=== PATIENT | female | born 1935 | race Caucasian/White ===

== ENCOUNTER 2017-04-04 18:05 | Inpatient (IN) | payer MEDICARE, BC ==
[2017-04-04] MEDS ORDERED: Morphine 4 MG/ML Carpuject ONE ×3 (18:22→21:39)
[2017-04-04] MEDS ORDERED: Ondansetron HCl/PF 4 MG/2 ML Vial ONE ×3 (18:22→21:35)
[2017-04-04] MEDS ORDERED: Lidocaine 1% w/Epinephrine 1:200K 30 ML VIAL ONE (18:27)
[2017-04-04] MEDS ORDERED: Proparacaine 0.5% Opth 15 ML BOT ONE (18:28)
[2017-04-04 18:38] LABS: #Eosinphils 0.3 thou/uL (0.0-0.7); #Lymphocytes 1.7 thou/uL (1.20-3.40); #Monocytes 0.9 thou/uL (0.11-0.59); #Neutrophils 7.9 thou/uL (1.40-6.50); %Basophils 0.2 % (0.0-1.0); %Eosinophils 2.9 % (0.0-10.0); %Lymphocytes 16.1 % (21.0-51.0); Hematocrit 41.9 % (36.0-47.0); Mean Platelet Volume 8.6 fL (7.4-10.4); Red Blood Cell (RBC) Count 4.27 mill/uL (4.20-5.40); White Blood Cell (WBC) Count 10.8 thou/uL (4.8-10.8)
[2017-04-04 18:45] LABS: Prothrombin Time 14.5 SEC (12.0-14.7)
[2017-04-04 18:46] LABS: PTT 30.4 SEC (22.9-36.1)
--- NOTE | 2017-04-04 18:59 | CT ---
HEAD CT NONCONTRAST 04/04/17 COMPARISON: 11/01/12 CLINICAL HISTORY: Fall with head injury. FINDINGS: There is marked abnormality of the right globe which is proptotic and diffusely hyperdense with adjac ent periorbital soft tissue hematoma. Soft tissue laceration of the right face is present. Fracture d eformity is seen within the right zygomatic arch. Fracture extension does involve the lateral wall of the right maxillary sinus and the lateral wall of the right orbit. There is a component of retrobulb ar hematoma. Associated intraconal and extraconal fat stranding present. There is no ventriculomegaly , mass effect, midline shift, or acute intracranial hemorrhage. IMPRESSION: Hemorrhagic posttraumatic right globe with proptosis and surrounding preseptal hematoma as well as re trobulbar hematoma. There is associated lateral wall right orbital fracture and additional injury to the right face as discussed above. Recommend urgent ophthalmology consultation for further evaluation . No acute intracranial hemorrhage or mass effect. POS: [facility]
--- NOTE | 2017-04-04 19:02 | CT ---
CT CERVICAL SPINE WITHOUT CONTRAST 04/04/17 HISTORY: Trauma. COMPARISON: None. FINDINGS: the mastoids are clear. There are erosions of the odontoid process with chronic synovitis. Severe de generative changes throughout the facets with large effusions. No acute fracture. There is anterolis thesis of 2 mm at C4 over C5 due to degenerative facet arthropathy. Multifocal neural foraminal narrowing is present. Lung apices are clear. IMPRESSION: 1. Extensive erosive changes of the atlantodental interval. 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 2. Moderate to severe degenerative changes throughout the cervical spine. 3. No acute fracture or malalignment. 4. Multilevel spondylosis and anterolisthesis. POS: [facility]
[2017-04-04 19:04] LABS: ALT (SGPT) 16 U/L (8-55); AST (SGOT) 16 U/L (5-34); Alkaline Phosphatase 78 U/L (40-150); Anion Gap 11 mmol/L (10-20); BUN (Urea Nitrogen) 24 mg/dL (9.8-20.1); Bilirubin, Total 0.3 mg/dL (0.2-1.2); Calc. Creatinine Clearance 0 mL/min (70-130); Calcium 9.9 mg/dL (7.8-10.44); Carbon Dioxide 28 mmol/L (23-31); Chloride 103 mmol/L (98-107); Estimated GFR-MDRD 57; Globulin 3.2 g/dL (2.4-3.5)
--- NOTE | 2017-04-04 19:06 | CT ---
CT OF FACE NONCONTRAST 04/04/17 INDICATION: Injury, fall. FINDINGS: As discussed on head CT, there is marked abnormality of the right globe which is proptotic and hyperd ense compatible with acute posttraumatic hemorrhage occupying majority of the right globe as well as the preseptal and retrobulbar soft tissues. Associated fracture deformity does involve the lateral wa ll of the right orbit, the junction of the superior and lateral grajeda of the right maxillary sinus an d the right zygomatic arch. Overlying soft tissue hematoma and subcutaneous air density present on th e right face. There is mild opacification of the right maxillary sinus. There are multiple absent den tition as well as lucencies about remaining dentition with odontogenic disease. IMPRESSION: Fractures involving the right orbit and right maxillary sinus and right zygoma with associated intrab ulbar hemorrhage, preseptal and retrobulbar hematoma and prominent right sided proptosis. Recommend u rgent ophthalmology consultation for further care. POS: [facility]
[2017-04-04] MEDS ORDERED: Bacitracin Zinc 1 Packet ONE (20:36)
[2017-04-04] MEDS ORDERED: hydrALAZINE 20 MG/ML VIAL SLOW IVP PRN (22:13)
[2017-04-04] MEDS ORDERED: Ondansetron ODT 4 MG TAB PO PRN (22:13)
[2017-04-04] MEDS ORDERED: traMADol HCl 50 MG TAB PO PRN ×2 (22:13)
[2017-04-04] MEDS ORDERED: Dextrose 50% Abboject 50 ML SYRINGE SLOW IVP PRN (22:13)
[2017-04-04] MEDS ORDERED: Dextrose 5% in Water 1,000 ML IV PRN (22:13)
[2017-04-04] MEDS ORDERED: Ondansetron HCl/PF 4 MG/2 ML Vial IVP PRN (22:13)
[2017-04-04] MEDS ORDERED: Acetaminophen/Codeine 30-300mg Tablet PO PRN ×2 (22:21)
[2017-04-04] MEDS: Sodium Chloride 0.9% 1,000 ML IV SCH (22:41)
[2017-04-04] MEDS: Acetaminophen 500 MG TAB PO SCH (23:10)
--- NOTE | 2017-04-05 00:03 | HP ---
DATE OF ADMISSION: 04/04/2017 REQUESTING PHYSICIAN: Bernardo Martinez M.D. ATTENDING PHYSICIAN: Jayme Hinton DO CONSULTATIONS: Ophthalmology, Dr. Khanna and Oral Maxillofacial Surgery, Dr. Gurjit Correa. HISTORY OF PRESENT ILLNESS: The patient is an 81-year-old woman who reportedly fell while walking down the steps approximately 1 hour prior to presenting to the emergency room. She reports falling and striking the right side of her face. She denies loss of consciousness. She was vivian t to the emergency room by ground EMS for evaluation of markedly decreased vision to her right eye a nd some neck pain. The patient underwent evaluation and examination was noted to have significant d ecreased vision in her right eye and some very noticeable proptosis at which time the ophthalmologis t was consulted, evaluated the patient, and performed a lateral canthotomy. The patient's vision di d not improve and may be even slightly worsened over time to the degree that by report she was able see fingers in front of her, then is currently unable to see out of her eye, at which time we were a sked to evaluate the patient for admission and to obtain consultation by [facility] for facial fractures. ALLERGIES: PENICILLIN. CURRENT MEDICATIONS: Lisinopril 10 mg daily, aspirin 81 mg daily, and multivitamin. PAST MEDICAL HISTORY: Hypertension. PAST SURGICAL HISTORY: Bilateral total knee replacements, cholecystectomy, and hysterectomy. SOCIAL HISTORY: Patient denies drugs, tobacco, or alcohol use. REVIEW OF SYSTEMS: A ten-point review of systems is negative unless otherwise stated. PHYSICAL EXAMINATION: VITAL SIGNS: Blood pressure 131/56, heart rate 70, respirations 18, temperature is 98.4, oxygen sat uration is 96% on 2 liters by nasal cannula. GENERAL: The patient is resting in the hospital bed. She appears comfortable. She is alert and or iented x3. [place] coma scale is 14. Patient at one point had her eyes closed, but immediately res ponded to verbal stimuli. HEENT: Head is normocephalic, atraumatic face. The right eye shows marked periorbital ecchymosis o f the upper lid. The eye itself is unable to be examined due to the swelling and bandaging the cont ralateral eye. PERRLA. Extraocular motion is intact, but the exam did cause some pain on the injur ed side. The nose had small amount of blood in the right naris, otherwise it was unremarkable. The ears are atraumatic without discharge. Oropharynx is clear. NECK: Nontender. Trachea is midline. No JVD. CHEST: Clear to auscultation with good inspiratory and expiratory effort. HEART: Regular rate and rhythm. ABDOMEN: Soft, flat, nontender. Pelvis is stable. EXTREMITIES: Show full active range of motion. Strength is 5/5 and capillary refill is less than 3 seconds. BACK: Nontender and atraumatic. LABORATORY FINDINGS: White blood cell count 10.8, hemoglobin 13.2, hematocrit 41.9, platelets 170. Sodium 138, potassium 4.3, chloride 103, CO2 of 28, BUN 24, creatinine 0.94, glucose 110. LFTs are unremarkable. PTT 30. PT 15, INR 1.1. RADIOGRAPHIC EXAMINATION: CT of the brain without contrast shows no acute intracranial hemorrhage o r mass effect. It does show hemorrhagic post-traumatic red globe with proptosis and surrounding pre septal hematoma as well as retrobulbar hematoma. There is an associated lateral wall fracture of th e right orbit and additional injury to the face right maxillary sinus fracture in the right zy gomatic arch. CT of the face without contrast shows again the retrobulbar hemorrhage and proptosis, fractures of the right maxillary sinus, right zygomatic arch, superior and lateral grajeda of the max illary sinus and lateral wall of the right orbit. CT of the C-spine without contrast shows no acute fracture, malalignment, or multiple degenerative changes. ASSESSMENT: 1. Status post ground level fall. 2. Right retrobulbar and preseptal hemorrhage and hematoma with significant acute vision loss. 3. Right maxillary sinus fracture. 4. Right orbital wall fracture. 5. Status post lateral canthotomy. 6. Acute pain secondary to trauma. 7. Hypertension. PLAN: We will be to admit the patient to the surgical floor for pain management. We will obtain co nsultation by [facility]. The patient will be reexamined by Dr. Khanna in the morning. She will have pa in control, pulmonary toilet, gastritis, mechanical DVT prophylaxis. The evaluation examination, ra diographic and laboratory findings will be discussed with Dr. Hinton after this dictation. This case was discussed with the family and I was able to answer the son's questions at this time.
[2017-04-05 00:30] VITALS: BMI 34.9
[2017-04-05 04:43] LABS: Anion Gap 14 mmol/L (10-20); BUN (Urea Nitrogen) 23 mg/dL (9.8-20.1); Calc. Creatinine Clearance 82 mL/min (70-130); Calcium 9.6 mg/dL (7.8-10.44); Carbon Dioxide 24 mmol/L (23-31); Chloride 107 mmol/L (98-107); Estimated GFR-MDRD 67
[2017-04-05 04:55] LABS: #Lymphocytes 1.4 thou/uL (1.20-3.40); #Monocytes 0.6 thou/uL (0.11-0.59); #Neutrophils 10.7 thou/uL (1.40-6.50); %Basophils 0.2 % (0.0-1.0); %Eosinophils 0.3 % (0.0-10.0); %Monocytes 4.7 % (0.0-10.0); Hematocrit 41.4 % (36.0-47.0); Mean Platelet Volume 9.9 fL (7.4-10.4); Red Blood Cell (RBC) Count 4.18 mill/uL (4.20-5.40); White Blood Cell (WBC) Count 12.8 thou/uL (4.8-10.8)
[2017-04-05] MEDS: Acetaminophen 500 MG TAB PO SCH ×3 (05:32→17:29)
[2017-04-05] MEDS: Famotidine 20 MG TAB PO SCH ×2 (08:42→21:19)
[2017-04-05] MEDS: Sodium Chloride 0.9% 1,000 ML IV SCH ×2 (08:42→17:29)
[2017-04-05] MEDS ORDERED: FLU VACC TS2017-18 (>65YR) 0.5 ML SYRINGE IM ONE (09:00)
--- NOTE | 2017-04-05 21:05 | CON ---
DATE OF CONSULTATION: 04/05/2017 HISTORY OF PRESENT ILLNESS: This is an 81-year-old female status post fall while at [facility] at appro ximately 4.00 p.m. on 04/04/2017. The patient presented to [facility] with significant right per iorbital edema decreasing vision, proptosis, a lateral cantholysis was performed by Dr. Khanna and a Kayleigh drain placed. A CT scan of the face revealed facial fractures for which Oral Surgery was consulted. PAST MEDICAL HISTORY: Hypertension. MEDICATIONS: Lisinopril, aspirin, and multivitamin. ALLERGIES: PENICILLIN. PAST SURGICAL HISTORY: Bilateral total knee replacements, cholecystectomy, and hysterectomy. SOCIAL HISTORY: Negative for tobacco, alcohol or recreational drugs. REVIEW OF SYSTEMS: The patient reports mild right facial pain. Otherwise, within normal limits. PHYSICAL EXAMINATION: VITAL SIGNS: Stable, afebrile. GENERAL: The patient lying in hospital bed in no acute distress. Awake, alert, and oriented x3. HEENT: Normocephalic. Significant right periorbital edema and ecchymosis, proptosis. A quarter in ch Kayleigh drain is present laterally. No appreciable oozing at the time of exam from the drain. C ircumferential subconjunctival heme, ocular exam deferred to Dr. Khanna's notes. No palpable bony or crepitus along the face. Ears atraumatic. Nasal bridge symmetrical. Nares patent bilater ally. No epistaxis, no septal hematoma. Range of motion of the mandible was within normal limits. TMJ bilaterally within normal limits. NECK: Supple. Trachea midline. CT of the face reveals a right zygomatic fracture with mild displa cement of the right zygomatic arch, not impinging on the right mandibular coronoid process approxima tely 2 mm medial displacement at the posterolateral aspect of the zygoma, the lateral maxillary sinu s wall. No significant stab appreciated at the inferior orbital rim. A linear, mildly displaced fr acture of the right orbital floor and the posterolateral aspect was present, no herniation of soft t issues to the fracture. ASSESSMENT: An 81-year-old female status post fall with right zygomatic and orbital fractures. PLAN: No operative intervention is indicated for the facial fractures. Recommend sinus precautions discussed in detail with the patient including no vigorous nose blowing, cough, sneeze with mouth o pen, no stooping, bending or heavy lifting for 3 weeks, ocular recommendations per Dr. Khanna, appr eciate assistance with the patient's injuries. She can follow up in the oral surgery clinic on an a s needed basis, call [phone] for appointment.
--- NOTE | 2017-04-05 21:50 | PRG ---
DATE OF SERVICE: 04/05/2017 SUBJECTIVE: The patient is hospital day #2 status post fall resulting in significant right eye retr obulbar hemorrhage and facial fractures. The patient underwent lateral canthotomy by Dr. Clemencia romo in the emergency department and this morning is awaiting his reevaluation and planned Penros e drain removal. The patient will also undergo evaluation by an oral maxillofacial surgeon allie olson. Initial discussion is that these are most likely nonoperative type fractures. This morning, the patient states that her pain is controlled and we will allow her a diet. PHYSICAL EXAMINATION: VITAL SIGNS: Temperature is 97.5, heart rate 57, blood pressure 127/75, respirations 16, oxygen sat uration is 96% on room air. GENERAL: The patient is resting comfortably in bed. She is alert and oriented x3. She is conversa nt and appropriate. HEENT: Her dressings on her right side of her face are clean, dry, and intact. LUNGS: Her chest is clear to auscultation bilaterally with good inspiratory and expiratory effort. HEART: Regular rate and rhythm. ABDOMEN: Soft, flat, and nontender. EXTREMITIES: Neurovascularly intact x4. LABORATORY FINDINGS: White blood cell count 12.8, hemoglobin 13.0, hematocrit 41.4, platelets 116. Sodium 140, potassium 4.6, chloride 107, CO2 of 24, BUN 23, creatinine 0.82, glucose 133. ASSESSMENT AND PLAN: 1. Status post ground level fall. 2. Right retrobulbar hemorrhage, status post lateral canthotomy. 3. Multiple facial fractures. The plan will be to continue pain management, pulmonary toilet, gastritis, mechanical deep venous th rombosis prophylaxis. We will also ask rehabilitation to evaluate her for placement. The evaluatio n was done on the surgical floor with Dr. Hinton.
[2017-04-06] MEDS: Acetaminophen 500 MG TAB PO SCH ×4 (00:35→18:23)
[2017-04-06] MEDS: Sodium Chloride 0.9% 1,000 ML IV SCH ×2 (05:20→16:22)
[2017-04-06] MEDS: Famotidine 20 MG TAB PO SCH (08:29)
[2017-04-06] MEDS ORDERED: Aspirin 81 mg Enteric Coated Tablet PO SCH (09:00)
[2017-04-06] MEDS ORDERED: Lisinopril 10 MG TAB PO SCH (09:00)
[2017-04-06 16:48] VITALS: BP 130/74
[2017-04-06 20:47] VITALS: TEMP 98.6
--- NOTE | 2017-04-07 11:50 | DIS ---
DATE OF ADMISSION: 04/04/2017 DATE OF DISCHARGE: 04/06/2017 ADMITTING DIAGNOSES: 1. Status post ground-level fall. 2. Right retrobulbar and preseptal hemorrhage and hematoma with significant acute vision loss. 3. Right maxillary sinus fracture. 4. Right orbital wall fracture. 5. Status post lateral canthotomy. 6. Acute pain secondary to trauma. 7. Hypertension. CONSULTATIONS: Ophthalmology, Dr. Khanna; Oral Maxillofacial Surgery, Dr. Rodriguez. PROCEDURES: Right lateral canthotomy. SUMMARY: The patient is an 81-year-old woman who was reportedly walking when she tripped and fell and struck the right side of her face. She was brought to the Emergency Department, evalua garcía and examined and found to have the above injuries. The patient was noted to have significant pr optosis of the right eye and decreasing vision at which time Dr. Khanna was consulted and evaluated the patient in the emergency department and performed a lateral canthotomy in the emergency departm ent and placed a drain and the following day, he would remove this drain. The patient's vision had improved slightly at time of discharge. She was also evaluated by [facility] who recommended nonoperative management of her facial fractures. The patient will be discharged to inpatient rehab with instruc tions to follow up with Dr. Khanna within the next 2-3 days. She may follow up with the [facility] in 7-10 days and may return to the Trauma clinic as needed.
== END 2017-04-06 21:11 | DRG 115 ==
LOC: ERS 18:05 → SURG A 21:00
PROVIDERS: ADMIT Surgery; ATTEND Surgery
PROC: 08N0XZZ Release Right Eye, External Approach (ICD-10-PCS; principal; 2017-04-04)
PROC: 089 Eye, Drainage (ICD-10-PCS; 2017-04-04)
PROC: 08P Eye, Removal (ICD-10-PCS; 2017-04-05)
DX: H57.8 Other specified disorders of eye and adnexa (principal); S02.40CA Maxillary fracture, right side, initial encounter for closed fracture; I10 Essential (primary) hypertension; S02.81XA Fracture of other specified skull and facial bones, right side, initial encounter for closed fracture; S02.40EA Zygomatic fracture, right side, initial encounter for closed fracture; Z88.0 Allergy status to penicillin; Z96.653 Presence of artificial knee joint, bilateral; Z90.49 Acquired absence of other specified parts of digestive tract; Z90.710 Acquired absence of both cervix and uterus; H54.61 Unqualified visual loss, right eye, normal vision left eye; S05.11XA Contusion of eyeball and orbital tissues, right eye, initial encounter; H05.231 Hemorrhage of right orbit
CPT/HCPCS: 36415; 70450; 70486; 72125; 80048; 80053; 85025; 85610; 85730; 90471; 90682; 96361; 96374; 96375; 96376; G0008; G0390; G8978-GP-CJ; G8979-GP-CI; G8987-GO-CJ; G8988-GO-CI; J2270; J2405; J2930; J7050; Q2036

== ENCOUNTER 2019-03-21 18:24 | Inpatient (IN) | payer MEDICARE, OTHER ==
--- NOTE | 2019-03-21 19:04 | CT ---
CT HEAD WITHOUT IV CONTRAST COMPARISON: 11/19/2017 HISTORY: Patient fell from a standing position and hit head. Injury after trauma. TECHNIQUE: Axial CT imaging at 5 mm intervals from vertex through skull base without contrast FINDINGS: There is no evidence of an acute infarction, hemorrhage, mass effect, or midline shift. The ventricul ar system is normal in size, shape, and position. Visualized paranasal sinuses and mastoid air cells are clear. Again noted is deformity of the right g lobe with associated increased density stable from prior study with associated small calcifications now present. Findings are likely related to remote history of trauma. Osseous structures appear intact.No calvarial fracture is seen. IMPRESSION: 1. No acute intracranial abnormality demonstrated. 2. Remote traumatic injury right globe.
[2019-03-21] MEDS ORDERED: Adacel (T-DAP) 0.5 ML SYRINGE ONE (19:05)
--- NOTE | 2019-03-21 19:11 | CT ---
EXAM: CT cervical spine PROVIDED CLINICAL HISTORY: Injury after trauma. Patient fell from a standing position and reports pain in back. TECHNIQUE: Contiguous axial CT images are obtained through the cervical spine from the skull base to the T2-3 le luke. Sagittal and coronal reformatted images are provided. COMPARISON: 04/04/2017 FINDINGS: Multilevel degenerative changes are seen throughout the cervical spine with extensive facet hypertrop hic changes at multiple levels and prominent osteophyte formation anteriorly. Again noted is slight anterolisthesis of C4 on C5 and C5 on C6 with trace anterolisthesis of C6 on C7 stable from prior cherie dy and likely related to the prominent facet hypertrophic changes. The vertebral body heights are within normal limits, and no fracture is seen. There is fusion of the T1, T2, and T3 vertebral bodies . There is prominent pannus formation involving the articulation of the odontoid with the anterior arch of C1 which was also seen on prior exam. This can be seen with inflammatory arthropathy as noted on prior exam. Multilevel moderate and severe degrees of neural foraminal narrowing are again seen. No prevertebral soft tissue swelling apparent. Visualized lung apices appear clear. Visualized thyroid gland demonstrates a grossly normal nonenhanced CT appearance. There is severe hypertrophic type changes involving the sternoclavicular joints bilaterally incomplet megan imaged or evaluated. IMPRESSION: 1. No fracture is seen involving the cervical spine. 2. Severe multilevel degenerative changes throughout the cervical spine with extensive erosive change s at the atlantodental interval which is stable from prior exam. 3. Multilevel anterolisthesis as described above related to prominent facet hypertrophic changes. 4. Additional findings as described above.
[2019-03-21] MEDS ORDERED: Morphine 4 MG/ML VIAL ONE (19:19)
[2019-03-21] MEDS ORDERED: Ondansetron PF 4 MG/2 ML Vial ONE (19:20)
[2019-03-21 19:49] LABS: #Eosinphils 0.1 thou/uL (0.0-0.7); #Lymphocytes 1.8 thou/uL (1.20-3.40); #Monocytes 0.8 thou/uL (0.11-0.59); #Neutrophils 12.8 thou/uL (1.40-6.50); %Basophils 0.1 % (0.0-1.0); %Eosinophils 0.5 % (0.0-10.0); %Lymphocytes 11.6 % (21.0-51.0); %Monocytes 5.2 % (0.0-10.0); %Neutrophils 82.7 % (42.0-75.0); Hemoglobin 12.6 g/dL (12.0-16.0); Mean Corpuscular HGB CONC 32.4 g/dL (32.0-36.0); Mean Corpuscular Hemoglobin 31.3 pg (27.0-31.0); Mean Corpuscular Volume 96.6 fL (78.0-98.0); Mean Platelet Volume 9.5 fL (7.4-10.4); Platelet Count 170 thou/uL (130-400); RBC Distribution Width 12.7 % (11.5-14.5); Red Blood Cell (RBC) Count 4.03 mill/uL (4.20-5.40); White Blood Cell (WBC) Count 15.5 thou/uL (4.8-10.8)
[2019-03-21 19:55] LABS: INR-International Normal Ratio 1.1; PTT 27.6 SEC (22.9-36.1); Prothrombin Time 14.3 SEC (12.0-14.7)
[2019-03-21 20:10] LABS: ALT (SGPT) 17 U/L (8-55); AST (SGOT) 22 U/L (5-34); Albumin 3.6 g/dL (3.4-4.8); Alkaline Phosphatase 79 U/L (40-110); Anion Gap 11 mmol/L (10-20); BUN (Urea Nitrogen) 28 mg/dL (9.8-20.1); Bilirubin, Total 0.3 mg/dL (0.2-1.2); Calc. Creatinine Clearance 0 mL/min (70-130); Calcium 9.4 mg/dL (7.8-10.44); Carbon Dioxide 25 mmol/L (23-31); Chloride 106 mmol/L (98-107); Estimated GFR-MDRD 56; Glucose 130 mg/dL (83-110); Potassium 3.9 mmol/L (3.5-5.1); Protein, Total 6.6 g/dL (6.0-8.3); Sodium 138 mmol/L (136-145)
[2019-03-21] MEDS ORDERED: Dextrose 5% in Water 1,000 ML IV PRN (20:21)
[2019-03-21] MEDS ORDERED: Dextrose 50% Abboject 50 ML SYRINGE SLOW IVP PRN (20:21)
[2019-03-21] MEDS ORDERED: Ondansetron PF 4 MG/2 ML Vial IVP PRN (20:21)
[2019-03-21] MEDS ORDERED: HumaLOG 300 UNITS/3 ML VIAL SC PRN (20:21)
[2019-03-21] MEDS ORDERED: hydrALAZINE 20 MG/ML VIAL SLOW IVP PRN (20:21)
--- NOTE | 2019-03-21 20:24 | CT ---
CT LUMBAR SPINE WITHOUT CONTRAST: HISTORY: Fall from standing position. The patient reports back pain. COMPARISON: None. TECHNIQUE: Contiguous axial CT images are obtained through the lumbar spine from the T11 vertebral body to the u pper sacrum. Sagittal and coronal reformatted images are provided. FINDINGS: There is diffuse osteopenia and multilevel degenerative changes throughout the lumbar spine. There is an obliquely oriented fracture involving predominantly the right aspect of the L3 vertebral body wit h the fracture extending obliquely through the superior endplate of the vertebral body. There is wide whitney of the fracture fragments measuring approximately 8 mm. The right lateral superior fracture frag ment is slightly displaced superiorly by 7 mm. No obvious additional fracture is appreciated. There are multilevel large anterior osteophytes and severe facet hypertrophic changes at multiple lev els. There is trace anterolisthesis of L4 on L5 likely related to the facet degenerative changes. T12-L1: There is posterior osteophyte formation with facet degenerative changes. There also appears t o be fusion at this level. There is flattening of the anterior ventral subarachnoid space with promin ent central posterior osteophyte at this level. The neural foramina are patent. L1-L2: There is disk osteophyte complex seen posteriorly with facet hypertrophic changes. Findings re sult in mild narrowing of the central spinal canal with mild right-sided neural foraminal narrowing. The left neural foramen is patent. L2-L3: There is a disk osteophyte complex with posterior osteophyte formation and prominent facet hyp ertrophic changes. There is moderate to severe narrowing of the central spinal canal as well as narro wing of the lateral recesses. The neural foramina are patent. L3-L4: There is a broad-based disk osteophyte complex with prominent endplate degenerative changes an d vacuum phenomenon of the intervertebral disks. There are severe facet hypertrophic changes. There i s severe central canal narrowing with narrowing of the lateral recesses. There is also bilateral neur al foraminal narrowing, which appears severe in severity. L4-L5: There are severe facet hypertrophic changes. There is a broad-based disk osteophyte complex pr esent. There is trace anterolisthesis of L4 on L5 as described above. Findings result in severe narro wing of the central spinal canal as well as narrowing of the lateral recesses. There is severe bilate ral neural foraminal narrowing. L5-S1: There is suggestion of partial fusion at this level. There is no significant narrowing of the central spinal canal. There are severe facet hypertrophic changes with moderate to severe left and mi nimal right-sided neural foraminal narrowing. There is evidence of a retroperitoneal hematoma on the right, which is at the level of the fracture o f the L3 vertebral body. The hemorrhage measures approximately 15.4 cm craniocaudal by 12.7 cm AP by 3.9 cm transverse. IV contrast was not utilized for further evaluation of the vascular structures in this region or evaluation of the right kidney as there is increased density surrounding portions of t he right renal pelvis. There is a hypodense lesion involving the left kidney also seen on prior CTA exam in 2018 which proba mala represents a renal cyst. Vascular calcifications are seen in the abdominal aorta. There is partial visualization of colonic diverticula in the sigmoid colon. IMPRESSION: 1. and displaced obliquely oriented fracture involving the L3 vertebral body. 2. Multilevel severe degenerative changes as described above. 3. Retroperitoneal hematoma on the right. Further evaluation with CT abdomen with IV contrast is clemente mmended. Above findings discussed with Dr. Willoughby in the emergency department on 03/21/2019 at 1919 hours. CODE CR POS: OFF
[2019-03-21] MEDS ORDERED: traMADol HCl 50 MG TAB PO PRN ×2 (20:29)
[2019-03-21] MEDS ORDERED: Sodium Chloride 0.9% 1,000 ML IV SCH ×2 (20:30)
[2019-03-21] MEDS ORDERED: Acetaminophen 1,000 MG in Premix Bag 1 BAG IVPB SCH (20:30)
--- NOTE | 2019-03-21 23:25 | HP ---
HISTORY OF PRESENT ILLNESS: Ms. Barnes is an 83-year-old female presenting to ED after ground level fall. The patient reports she fall from standing, hit her head and right arm on a motorized scooter. Did not LOC . After fall, the patient sustained laceration of the right temporal area and cruciate, back pain. Upon arrival in the ED, the patient is alert and awake, oriented x3. GCS 15. Complained of pain in the middle and lower back. Pain aggravated with movement and there is no change of sensation or numbness of bilateral lower extremity . R skull laceration was staple in the ED. Vital signs are stable. REVIEW OF SYSTEMS: Noncontributory except per HPI. PAST MEDICAL HISTORY: Hypertension, coronary artery disease with one stent 10 years ago. PAST SURGICAL HISTORY: Bilateral knee replacement, cholecystectomy. SOCIAL HISTORY: The patient lives at home. Denies drug use. Denies alcohol use. No smoking history. CURRENT MEDICATIONS: Lisinopril and aspirin 81 mg daily. ALLERGIES: PENICILLIN ALLERGY. PHYSICAL EXAMINATION: GENERAL: The patient is lying down in bed in moderate acute distress due to pain of the mid and lower back. The patient is oriented x3. GCS 15. SKIN: Brule and warm, moist. VITAL SIGNS: Heart rate is 50, blood pressure is 103/56, respiratory rate 20, O2 saturation 100 on 2 L of nasal cannula. HEENT: Right temporal laceration stopped bleeding and stable. Pupil 3 mm, equal bilaterally. NECK: Trachea midline. Atraumatic. no crepitus. Not painful to palpation. LUNGS: Clear bilaterally. HEART: Regular rate and rhythm. Bradycardia. Heart rate is 50 per minute. ABDOMEN: Soft, nondistended. Not painful to palpation. EXTREMITIES: Neurovascularly intact x4. NEUROLOGIC: No focal neurology deficits. BACK: did not attempt to log roll while i knew she had L3 fracture on CT scan RADIOLOGY: CT brain, no acute intracranial abnormality. CT of cervical spine shows no fracture. Shows severe multilevel degeneration change, multilevel anterolisthesis. Lumbar spine CT scan shows and displaced oblique oriented fracture involving L3 vertebral body. Retroperitoneal hematoma LABORATORY DATA: Shows white count 15.5, hemoglobin 12.6, sodium 138, potassium 3.9, creatinine 0.86, glucose 130, coagulation, INR 1.1. ASSESSMENT: 1. Status post ground level fall. 2. L3 fracture with associated large retroperitoneal hematoma 3. Skull laceration. 4. History of hypertension, knee replacement, cholecystectomy. PLAN: The patient will be admitted to IMCU, pain control, spinal precaution, and TLSO brace is on at all time. non pharmacological VTE prophylaxis. Neurosurgery saw the patient. I have discussed plan with neurosurgery and we will try conservative treatment at the moment. Job ID: [id number] [id number]
--- NOTE | 2019-03-22 00:08 | CON ---
DATE OF CONSULTATION: 03/21/2019 HISTORY OF PRESENT ILLNESS: The patient is an 83-year-old female with a past medical history of coronary artery disease with prior cardiac stenting, hypertension, who presented to the ER per EMS following a mechanical fall. The patient reports that she was walking in her home when she tripped over a rug, falling forward and hitting her 's motorized scooter. She suffered a large scalp laceration and was complaining of pain in the low back. CT of the head was negative for acute changes. CT of the cervical spine was also negative for acute injury. CT of the lumbar spine was notable for L3 vertebral body fracture. The fracture is wedge shaped and slightly [place] in deformity. There is associated retroperitoneal hematoma. The patient has no complaints of leg pain, numbness, tingling, bowel or bladder dysfunction. Her scalp laceration was repaired in the emergency department by the ER physician. REVIEW OF SYSTEMS: Per HPI. PAST MEDICAL HISTORY: Hypertension, coronary artery disease. PAST SURGICAL HISTORY: Cardiac stents, bilateral knee replacements, and cholecystectomy. SOCIAL HISTORY: The patient lives at home. She does not smoke, drink, or use any drugs. ALLERGIES: SHE IS ALLERGIC TO PENICILLIN. PHYSICAL EXAMINATION: VITAL SIGNS: BP is 141/70, pulse 52, respiratory rate is 22, patient is 94% on room air. CONSTITUTIONAL: Awake, alert, no acute distress. HEENT: Head; she has a right posterior scalp laceration repaired by the emergency department. Eyes, PERRLA. Extraocular movements intact. ENT; oral mucosa is pink, intact, and moist. She has normal voice. NECK: Nontender to palpation. Free active range of motion. No meningismus. No nuchal rigidity. RESPIRATORY: Symmetric chest expansion. No evidence of dyspnea. CARDIOVASCULAR: Regular rate and rhythm. BACK: She is tender over the lower lumbar spine. No palpable step-offs. MUSCULOSKELETAL: Good strength in the lower extremities. Sensation is intact. She has normal reflexive in the lower extremities. NEURO: No focal neurologic deficits are appreciated on my exam. GCS 15. A and O x4. ASSESSMENT AND PLAN: This is an 83-year-old female, status post mechanical fall with L3 vertebral body fracture. She is neurologically intact. We plan to have her fitted with an LSO brace. She should wear the brace at all times. We are also recommending holding her aspirin considering her underlying retroperitoneal hematoma. We will watch her neurologic exam closely and repeat this q.2 overnight. I have discussed this plan with Dr. Deluna, as well as Trauma Service. Job ID: [id number]
[2019-03-22] MEDS: Acetaminophen 325 MG TAB PO SCH ×5 (00:34→21:22)
[2019-03-22] MEDS: Senokot S 8.6-50 MG TAB PO SCH ×3 (00:35→21:23)
[2019-03-22] MEDS: Gabapentin 300 MG CAP PO SCH ×3 (00:36→21:22)
[2019-03-22 02:00] VITALS: BMI 41.3
[2019-03-22] MEDS ORDERED: Sodium Chloride 0.9% (PF) 10 ML VIAL FS PRN (02:25)
[2019-03-22] MEDS ORDERED: Pantoprazole 40 MG VIAL IVP SCH ×2 (02:30→09:00)
[2019-03-22] MEDS ORDERED: Calcium Carbonate 500 MG ChewTAB PO PRN (02:32)
[2019-03-22] MEDS ORDERED: Acetaminophen 1,000 MG in Premix Bag 1 BAG IVPB SCH (03:00)
[2019-03-22] MEDS: Polyethylene Glycol 3350 17 GM Packet PO SCH (08:47)
[2019-03-22] MEDS ORDERED: Lisinopril 10 MG TAB PO SCH (09:00)
--- NOTE | 2019-03-22 09:36 | PDOC.GSPN ---
Surgery Progress Note: Subj - Subjective Narrative: Patient is an 83 yo F s/p ground level fall at home last night after tripping on a rug. She hit her head and R arm, however reports no LOC. CT Brain and C spine showed no acute abnormalities. CT lumbar spine showed and displaced oblique oriented fx of L3 vertebral body with retroperitoneal hematoma. Neurosurgery saw the patient and recommended conservative management with pain control, spine precautions, and TLSO brace. No acute events overnight. Patient reports pain well managed. Denies fever, chills, n/v, uncontrolled pain, weakness, numbness or paresthesias of extremities. Surgery Progress Note: Obj - Vital signs Vital signs: Vital Signs - Most Recent Temp Pulse Resp BP Pulse Ox 97.3 F L 100 03/22/19 03:41 03/22/19 08:01 - Physical Exam General: no distress, well developed, well nourished ENT: other (Dry oral mucosa. R temporal laceration) Cardiovascular: regular rate and rhythm, no murmur Respiratory: clear to auscultation, normal expansion, normal respiratory effort , breath sounds present Abdomen: soft, non tender, nondistended, positive bowel sounds Musculoskeletal: other (Able to move feet and upper extremities with no difficulty) Psychiatric: memory intact, oriented to time, oriented to person, oriented to place, speech is normal Surgery Progress Note: Results - Labs Result Diagrams: 03/21/19 19:40 03/21/19 19:40 Lab results: Laboratory Results - last 24 hr 03/22/19 03/22/19 02:01 06:33 POC Glucose 148 H 132 H Surgery Progress Note: A/P - Plan Plan: ASSESSMENT/PLAN: 1. S/P ground level fall from standing 2. L3 vertebral body fx with retroperitoneal hematoma 3. Head laceration PLAN: Will put in order for patient transfer out of [facility] to the floor pending room availablity and TLSO availability. Will continue current pain control regimen, spinal precaution, and VTE mechanical prophylaxis. Will encourage adequate hydration via increased oral intake. Patient will see PT/OT. The above plan was discussed with Dr Hinton on morning rounds. Patient was seen and evaluated by Dr Hinton. The plan was discussed with the patient who is in agreement
[2019-03-22] MEDS: Cyclobenzaprine 10 MG TAB PO PRN (11:58)
--- NOTE | 2019-03-22 13:09 | PRG ---
DATE OF SERVICE: 03/22/2019 The patient is seen and examined. I agree with Keiko Tai's evaluation on 03/21/2019. The patient is an 83-year-old woman, who fell. She has sustained an L3 fracture. She complains of back pain, but is neurologically intact. CT scan reveals a complex obliquely oriented L3 anterior vertebral body fracture. 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 We will treat in TLSO brace. Hold aspirin and all other anticoagulation indefinitely. Once TLSO brace in place, can be mobilized. I will arrange outpatient followup and she will need to be in the brace for at least 3 weeks religiously. For the followup part, she will need to be in the brace 22/12. Job ID: [id number]
[2019-03-22] MEDS ORDERED: FLU VACC TS2019-20(65YR UP)/PF 180 MCG/0.5 ML SYRINGE IM ONE (21:00)
--- NOTE | 2019-03-22 23:13 | PRG ---
DATE OF SERVICE: 03/22/2019 SUBJECTIVE: The patient was seen this evening in the [facility]. She was sitting up in bed and her TLSO was in place, but it was not fitting appropriately. She reported her pain was much better controlled now and tolerated regular diet, and was able to get up with physical and occupational therapy. OBJECTIVE: VITAL SIGNS: Temperature 99.8, pulse 82, respirations 17, oxygen saturation 100% on room air, blood pressure is 145/75. GENERAL: Well-appearing elderly female, sitting up in bed with no signs of acute distress. PULMONARY: Equal chest rise and fall. Clear breath sounds bilaterally. No signs of acute respiratory distress. CARDIAC: Regular rate and rhythm. No murmurs, gallops, or rubs. GI: Abdomen is soft, nontender, nondistended. EXTREMITIES: 2+ pulses in all extremities. No significant swelling noted. Gross motor and sensation are intact. NEUROLOGIC: GCS is 15. Equal strength in all 4 extremities. ASSESSMENT: 1. Status post ground level fall. 2. L3 fracture. 3. Scalp laceration, status post repair. 4. Right-sided retroperitoneal hematoma, stable. 5. History of hypertension, coronary artery disease, and cardiac stents. PLAN: The patient did receive a TLSO brace today from orthotics. It did not appear to be positioned correctly. It was fixed by myself, the [facility] nurse and the tech. The patient reported it felt more comfortable this way as well. We will continue her current diet and pain regimen. She is pending moving to the floor. Continue May overnight. We will redress tomorrow morning. The patient is to wear the TLSO brace at all time per the recommendations of Neurosurgery. Job ID: [id number]
[2019-03-23] MEDS: Acetaminophen 325 MG TAB PO SCH ×4 (04:31→20:29)
[2019-03-23] MEDS: Senokot S 8.6-50 MG TAB PO SCH ×2 (09:07→20:29)
[2019-03-23] MEDS: Polyethylene Glycol 3350 17 GM Packet PO SCH (09:07)
[2019-03-23] MEDS: Gabapentin 300 MG CAP PO SCH ×2 (09:08→20:29)
[2019-03-23] MEDS: Lisinopril 10 MG TAB PO SCH (09:08)
--- NOTE | 2019-03-23 10:47 | PDOC.GSPN ---
Surgery Progress Note: Subj - Subjective Narrative: Patient is an 83 yo F s/p ground level fall at home resulting in a and displaced L3 vertebral body fx and retroperitoneal hematoma, hospital day # 2. No acute events overnight. Patient was transferred out of the IMC[facility] to the floor yesterday and recieved the TLSO brace to be worn at all times. Patient reports difficult fit of the brace with it slipping out of position during sleep. She worked with PT yesterday and reports difficulty getting into and out of bed, however walked easily. Reports lumbar pain with movement and walking. Denies fever, chills, n/v, paresthesias, numbness, weakness, or difficulty with walking. Will see PT again today Surgery Progress Note: Obj - Vital signs Vital signs: Vital Signs - Most Recent Temp Pulse Resp BP Pulse Ox 98.0 F 78 14 122/72 93 L 03/23/19 07:17 03/23/19 07:17 03/23/19 07:17 03/23/19 09:08 03/23/19 07:17 - Physical Exam General: no distress, well developed, well nourished, moderate pain Cardiovascular: regular rate and rhythm, no murmur Respiratory: clear to auscultation, normal expansion, normal respiratory effort , breath sounds present Abdomen: soft, non tender, nondistended, positive bowel sounds Genitourinary (Female): other (urinary catheter in place) Musculoskeletal: other (TLSO Brace in place) Psychiatric: memory intact, oriented to time, oriented to person, oriented to place, speech is normal Wound: healing well (R facial laceration healing well) Surgery Progress Note: Results - Labs Result Diagrams: 03/21/19 19:40 03/21/19 19:40 Lab results: Laboratory Results - last 24 hr 03/23/19 05:14 POC Glucose 103 Surgery Progress Note: A/P - Plan Plan: ASSESSMENT/PLAN: 1. S/P ground level fall from standing 2. L3 vertebral body fx with retroperitoneal bleed 3. Head laceration PLAN: Patient will work with PT today. Consult CM for rehab evaluation and possible placement. Will schedule Tramadol and add Motrin for advanced pain management. Will D/C Urinary catheter today. Continue to encourage ambulation and adequate PO hydration. Continue VTE prophylaxis The above plan was discussed with Dr Hinton on morning rounds. Patient was seen and evaluated by Dr Hinton. Plan was discussed with patient who is in agreement
[2019-03-23] MEDS ORDERED: Ibuprofen 600 MG TAB PO PRN (10:50)
[2019-03-23] MEDS: traMADol HCl 50 MG TAB PO SCH ×2 (12:25→18:13)
[2019-03-24] MEDS: traMADol HCl 50 MG TAB PO SCH ×5 (00:16→23:48)
--- NOTE | 2019-03-24 00:31 | PRG ---
DATE OF SERVICE: 03/23/2019 SUBJECTIVE: The patient was seen this evening, sitting up in bed, asleep with no signs of acute distress. She was resting comfortably and nursing reported no acute events. OBJECTIVE: VITAL SIGNS: Temperature 98.1, pulse 90, respirations 16, oxygen saturation 92% on room air, and blood pressure 113/87. GENERAL: Well-appearing elderly female, sitting up in bed with no signs of acute distress. PULMONARY: Equal chest rise and fall. No signs of acute respiratory distress. ASSESSMENT: 1. Status post ground-level fall. 2. L3 fracture with displacement. 3. Scalp laceration, status post repair. 4. Right-sided retroperitoneal hematoma, stable. 5. History of hypertension, coronary artery disease, and cardiac stents. PLAN: Continue current diet and pain regimen. May was to be discontinued today. Continue to hold aspirin. Continue TLSO at all times. The patient is pending a rehab screen. Job ID: [id number]
[2019-03-24] MEDS: Acetaminophen 325 MG TAB PO SCH ×4 (04:29→20:37)
[2019-03-24] MEDS: Senokot S 8.6-50 MG TAB PO SCH ×2 (08:19→20:37)
[2019-03-24] MEDS: Gabapentin 300 MG CAP PO SCH ×2 (08:19→20:37)
[2019-03-24] MEDS: Lisinopril 10 MG TAB PO SCH (08:19)
[2019-03-24] MEDS: Polyethylene Glycol 3350 17 GM Packet PO SCH (10:03)
--- NOTE | 2019-03-24 10:48 | PDOC.GSPN ---
Surgery Progress Note: Subj - Subjective Narrative: Patient is an 83 yo f s/p ground level fall at home resulting in a and displaced L3 vertebral body fx and retroperitoneal hematoma, hospital day # 3. Fx and hematoma have been managed non-operatively with recs from neurosurgery to where a TLSO brace always and discontinue anticoagulation therapy indefinitely. No acute events overnight. Patient reports walking with PT /OT x3 yesterday with improved pain control and increased ability to get up and into bed. States pain is well managed. Reports no bowel movement since prior to fall. Denies fever, chills, n/v/reflux, abdominal bloating or uncontrolled pain. Wishes to be admitted to swing bed in [place] upon discharge. Surgery Progress Note: Obj - Vital signs Vital signs: Vital Signs - Most Recent Temp Pulse Resp BP Pulse Ox 97.8 F 75 14 166/74 H 87 L 03/24/19 07:55 03/24/19 07:55 03/24/19 07:55 03/24/19 08:55 03/24/19 08:55 - Physical Exam General: no distress, well developed, well nourished Cardiovascular: regular rate and rhythm, no murmur Respiratory: clear to auscultation, normal expansion, normal respiratory effort , breath sounds present Abdomen: soft, non tender, nondistended, positive bowel sounds Musculoskeletal: other (TLSO brace in place) Psychiatric: memory intact, oriented to time, oriented to person, oriented to place, speech is normal Wound: healing well, other (R facial laceration healing well) Surgery Progress Note: Results - Labs Result Diagrams: 03/21/19 19:40 03/21/19 19:40 Surgery Progress Note: A/P - Plan Plan: ASSESSMENT/PLAN: 1. S/P ground level fall from standing 2. L3 Vertebral body fx with retroperitoneal hematoma 3. Head laceration PLAN: Per neurosurgery recs, VTE anticoagulation therapy will be held indefinitely. Will consult CT surgery for placement of IVC filter in the morning , as patient is at high risk of VTE with current injury. Will make patient NPO at midnight. Continue current pain management. Patient will work with PT/OT again today. Anticipate discharge tomorrow to swing bed in [place] after IVC placement. The above plan was discussed with Dr Hinton at morning rounds. The patient was seen and evaluated by Dr Hinton. The plan was discussed with the patient who is in agreement.
[2019-03-24] MEDS: Cyclobenzaprine 10 MG TAB PO PRN (12:06)
--- NOTE | 2019-03-24 18:29 | RAD ---
AP CHEST: 03/24/19 HISTORY: Pneumonia. COMPARISON: 02/20/18. Evidence of patchy infiltrate in the right lower lung. Borderline cardiomegaly and mild vascular engo rgement which appears stable. IMPRESSION: Evidence of patchy right lower lung infiltrate. Follow-up PA and lateral views of the chest recommend ed. POS: AGW
[2019-03-24 20:07] LABS: #Eosinphils 0.1 thou/uL (0.0-0.7); #Lymphocytes 1.4 thou/uL (1.20-3.40); #Monocytes 1.5 thou/uL (0.11-0.59); #Neutrophils 11.8 thou/uL (1.40-6.50); %Basophils 0.3 % (0.0-1.0); %Eosinophils 0.6 % (0.0-10.0); %Lymphocytes 9.5 % (21.0-51.0); %Monocytes 9.8 % (0.0-10.0); %Neutrophils 79.9 % (42.0-75.0); Mean Corpuscular Hemoglobin 30.8 pg (27.0-31.0); Mean Corpuscular Volume 96.5 fL (78.0-98.0); Mean Platelet Volume 9.4 fL (7.4-10.4); Platelet Count 186 thou/uL (130-400); RBC Distribution Width 12.7 % (11.5-14.5); Red Blood Cell (RBC) Count 3.57 mill/uL (4.20-5.40); White Blood Cell (WBC) Count 14.8 thou/uL (4.8-10.8)
[2019-03-24 20:30] LABS: Anion Gap 14 mmol/L (10-20); BUN (Urea Nitrogen) 34 mg/dL (9.8-20.1); Calc. Creatinine Clearance 63 mL/min (70-130); Calcium 9.6 mg/dL (7.8-10.44); Carbon Dioxide 26 mmol/L (23-31); Chloride 99 mmol/L (98-107); Estimated GFR-MDRD 47; Glucose 117 mg/dL (83-110); Magnesium 1.7 mg/dL (1.6-2.6); Phosphorus 2.9 mg/dL (2.3-4.7); Potassium 4.6 mmol/L (3.5-5.1); Sodium 134 mmol/L (136-145)
[2019-03-24] MEDS ORDERED: Benzonatate 100 MG CAP PO PRN (20:59)
[2019-03-24] MEDS: Sodium Chloride 0.9% 1,000 ML IV SCH (21:52)
[2019-03-24] MEDS ORDERED: PHOS-NAK 1 PKT PACK PO SCH (22:00)
[2019-03-24] MEDS ORDERED: cefTRIAXone\\ROCEPHIN 2 GM in Sodium Chloride 0.9% 100 ML IVPB SCH (22:00)
[2019-03-24] MEDS ORDERED: Magnesium 2 GM/50 ML 2 GM in Premix Bag 1 BAG IVPB SCH (22:00)
[2019-03-25] MEDS: Cepastat Lozenges 1 LOZ PO PRN ×3 (01:18→20:20)
[2019-03-25] MEDS: guaiFENesin/Codeine Phosphate 200 mg/20 mg 10 ml UD Cup PO PRN ×3 (02:11→15:34)
[2019-03-25] MEDS: Acetaminophen 325 MG TAB PO SCH ×4 (02:15→20:20)
--- NOTE | 2019-03-25 02:17 | PRG ---
DATE OF SERVICE: 03/24/2019 SUBJECTIVE: The patient was seen this evening after nursing reported the patient had significant coughing. On my evaluation, the patient reported she had developed a cough before her admission to the hospital, but had greatly gotten worsened over the last 24 hours. OBJECTIVE: VITAL SIGNS: Temperature 98, pulse 103, respirations 21, oxygen saturation 94% on 1 L nasal cannula, blood pressure 134/76. GENERAL: Elderly female, sitting up in bed, coughing with no signs of acute distress. PULMONARY: Equal chest rise and fall. Scattered crackles at bases. No signs of acute respiratory distress. CARDIAC: Tachycardic, but regular rhythm. No murmurs, gallops, or rubs. GASTROINTESTINAL: Abdomen is soft, nontender, nondistended. EXTREMITIES: 2+ pulses in all extremities. No significant swelling noted. Gross motor and sensation intact. ASSESSMENT: 1. Status post ground level fall. 2. L3 fracture. 3. Scalp laceration, status post repair. 4. Right retroperitoneal hematoma, stable. 5. Right lower lobe pneumonia. 6. Acute kidney injury. 7. History of hypertension, CAD, stents. PLAN: Sputum culture was sent. The patient received lab work. Phosphorus and magnesium were also replaced. She received a nebulizer treatment and NT suctioning. She was started on antibiotics for her new pneumonia. There is also concern that the patient may have a bronchitis as well. She is pending IVC filter placement tomorrow with Dr. Hudson. She is n.p.o. with normal saline at 100 an hour. Job ID: [id number]
[2019-03-25 05:13] LABS: Hemoglobin 10.4 g/dL (12.0-16.0); Mean Corpuscular HGB CONC 32.8 g/dL (32.0-36.0); Mean Corpuscular Hemoglobin 31.7 pg (27.0-31.0); Mean Corpuscular Volume 96.6 fL (78.0-98.0); Mean Platelet Volume 9.6 fL (7.4-10.4); Platelet Count 170 thou/uL (130-400); RBC Distribution Width 12.5 % (11.5-14.5); Red Blood Cell (RBC) Count 3.29 mill/uL (4.20-5.40); White Blood Cell (WBC) Count 13.8 thou/uL (4.8-10.8)
[2019-03-25 05:14] LABS: Band 14 % (5-11); Lymphocytes 4 % (21-51); MDiff Complete? YES; Monocytes 8 % (0-10); Neutrophil 74 % (42-75)
[2019-03-25 05:23] LABS: Anion Gap 14 mmol/L (10-20); BUN (Urea Nitrogen) 33 mg/dL (9.8-20.1); Calc. Creatinine Clearance 65 mL/min (70-130); Calcium 9.2 mg/dL (7.8-10.44); Carbon Dioxide 24 mmol/L (23-31); Chloride 98 mmol/L (98-107); Estimated GFR-MDRD 49; Glucose 116 mg/dL (83-110); Magnesium 2.3 mg/dL (1.6-2.6); Phosphorus 3.1 mg/dL (2.3-4.7); Potassium 4.6 mmol/L (3.5-5.1); Sodium 131 mmol/L (136-145)
[2019-03-25] MEDS ORDERED: Lidocaine 1% (PF) 30 ML VIAL ONE (06:36)
--- NOTE | 2019-03-25 07:47 | PDOC.GSPN ---
Surgery Progress Note: Subj - Subjective Narrative: Patient is an 83 yo F s/p ground level fall at home resulting in a and displaced L3 vertebral body fx and retroperitoneal hematoma, hospital day # 4. Patient worked with PT yesterday and states she ambulated well with controlled pain. Overnight the patient developed a worsening throaty cough and CXR showed a patchy RLL infiltrate. She was stated on ceftriaxone and levofloxacin. This morning she was taken by CT surgery for IVC filter placement , however it was unable to be placed due to the large size of her IVC. Patient currently states that she is having difficulty breathing, however must lay supine for two hours after her procedure. She states that Duoneb treatments given last night previously helped some. She denies current pain, n/v/diarrhea, fever or chills. Surgery Progress Note: Obj - Vital signs Vital signs: Vital Signs - Most Recent Temp Pulse Resp BP Pulse Ox 97.8 F 84 20 120/62 96 03/25/19 07:25 03/25/19 07:25 03/25/19 07:25 03/25/19 07:25 03/25/19 07:25 - Physical Exam General: moderate distress, well developed, well nourished Cardiovascular: regular rate and rhythm, no murmur Respiratory: coarse breath sounds, other (Inspiratory rales heard diffusly in upper lobes with throaty cough) Musculoskeletal: other (TLSO brace in place) Psychiatric: memory intact, oriented to time, oriented to person, oriented to place, speech is normal Wound: healing well Surgery Progress Note: Results - Labs Result Diagrams: 03/25/19 04:30 03/25/19 04:30 Lab results: Laboratory Results - last 24 hr 03/24/19 03/24/19 03/25/19 20:00 20:00 04:30 WBC 14.8 H RBC 3.57 L Hgb 11.0 L Hct 34.4 L MCV 96.5 MCH 30.8 MCHC 32.0 RDW 12.7 Plt Count 186 MPV 9.4 Neutrophils % 79.9 H Neutrophils % (Manual) Band Neuts % (Manual) Lymphocytes % 9.5 L Lymphocytes % (Manual) Monocytes % 9.8 Monocytes % (Manual) Eosinophils % 0.6 Basophils % 0.3 Neutrophils # 11.8 H Lymphocytes # 1.4 Monocytes # 1.5 H Eosinophils # 0.1 Basophils # 0.0 Sodium 134 L 131 L Potassium 4.6 4.6 Chloride 99 98 Carbon Dioxide 26 24 Anion Gap 14 14 BUN 34 H 33 H Creatinine 1.11 H 1.08 Estimated GFR (MDRD) 47 49 Glucose 117 H 116 H Calcium 9.6 9.2 Phosphorus 2.9 3.1 Magnesium 1.7 2.3 03/25/19 04:30 WBC 13.8 H RBC 3.29 L Hgb 10.4 L Hct 31.8 L MCV 96.6 MCH 31.7 H MCHC 32.8 RDW 12.5 Plt Count 170 MPV 9.6 Neutrophils % Neutrophils % (Manual) 74 Band Neuts % (Manual) 14 H Lymphocytes % Lymphocytes % (Manual) 4 L Monocytes % Monocytes % (Manual) 8 Eosinophils % Basophils % Neutrophils # Lymphocytes # Monocytes # Eosinophils # Basophils # Sodium Potassium Chloride Carbon Dioxide Anion Gap BUN Creatinine Estimated GFR (MDRD) Glucose Calcium Phosphorus Magnesium Surgery Progress Note: A/P - Plan Plan: ASSESSMENT/PLAN: 1. S/P ground level fall 2. L3 fx with retroperitoneal hematoma, stable 3. Scalp laceration, s/p repair 4. RLL pneumonia Plan: Sputum culture report states sample was likely saliva and must be recollected. Patient is will receive another nebulizer treatment for breathing. Will transition to PO levaquin for pnuemonia. Will order a repeat CXR, BNP, and speech evaluation for possible aspiration as etiology of pneumonia. Continue current pain regimen. Continue working with PT/OT and walking as tolerated.
[2019-03-25] MEDS: Polyethylene Glycol 3350 17 GM Packet PO SCH (08:23)
[2019-03-25] MEDS: Senokot S 8.6-50 MG TAB PO SCH ×2 (08:24→20:20)
[2019-03-25] MEDS: Sodium Chloride 0.9% 1,000 ML IV SCH (08:24)
[2019-03-25] MEDS: Lisinopril 10 MG TAB PO SCH (08:24)
[2019-03-25] MEDS: Gabapentin 300 MG CAP PO SCH ×2 (08:24→20:20)
--- NOTE | 2019-03-25 08:28 | OP ---
DATE OF PROCEDURE: 03/25/2019 PREOPERATIVE DIAGNOSIS: Multiple trauma with inability to anticoagulate. PROCEDURE PERFORMED: Inferior vena cavography. DESCRIPTION OF PROCEDURE: After prepping and draping, 1% lidocaine was infiltrated in the right groin and using ultrasound, the femoral vein was punctured on first pass. Catheter inserted. Vena cavography was obtained, and there was no evidence of thrombus, and both renal vein orifices were visualized. However, the inferior vena cava infrarenally was measured about 30 mm in diameter, which was the limit for the current filters that we stock. For this reason, the case was stopped at that point. Job ID: [id number]
[2019-03-25] MEDS ORDERED: Iopamidol 370 76% 50 ML VIAL FS ONE (12:00)
[2019-03-25] MEDS: traMADol HCl 50 MG TAB PO PRN (20:21)
[2019-03-25] MEDS: Cyclobenzaprine 10 MG TAB PO PRN (23:07)
--- NOTE | 2019-03-26 01:04 | PRG ---
DATE OF SERVICE: 03/25/2019 SUBJECTIVE: The patient was seen this evening during rounds. She was lying in bed and asleep with no signs of acute distress. Nursing reported no acute events. OBJECTIVE: VITAL SIGNS: Temperature 98, pulse 86, respirations 16, oxygen saturation 92% on 1 L nasal cannula, blood pressure 143/60. GENERAL: Well-appearing elderly female, sitting up in bed with no signs of acute distress. PULMONARY: Equal chest rise and fall. No signs of acute respiratory distress. ASSESSMENT: 1. Status post ground level fall. 2. L3 fracture, nonoperative. 3. Scalp laceration, status post repair. 4. Right retroperitoneal hematoma, stable. 5. Aspiration pneumonia, improving. 6. Acute kidney injury, resolved. 7. Suspected aspiration. 8. History of hypertension, coronary artery disease, and cardiac stents. PLAN: Continue current pain regimen and antibiotics. The patient was seen by Speech Language Pathology and her diet was adjusted for concern for aspiration. 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 We will continue to provide physical and occupational therapy. She is pending placement at this time. She is ready for discharge. Job ID: [id number]
[2019-03-26] MEDS: Acetaminophen 325 MG TAB PO SCH ×4 (03:41→20:19)
[2019-03-26] MEDS: Cepastat Lozenges 1 LOZ PO PRN (03:45)
[2019-03-26 05:20] LABS: Anion Gap 10 mmol/L (10-20); BUN (Urea Nitrogen) 28 mg/dL (9.8-20.1); Calc. Creatinine Clearance 78 mL/min (70-130); Calcium 9.4 mg/dL (7.8-10.44); Carbon Dioxide 28 mmol/L (23-31); Chloride 99 mmol/L (98-107); Estimated GFR-MDRD 60; Glucose 95 mg/dL (83-110); Magnesium 2.2 mg/dL (1.6-2.6); Phosphorus 2.6 mg/dL (2.3-4.7); Potassium 4.6 mmol/L (3.5-5.1); Sodium 132 mmol/L (136-145)
[2019-03-26 06:00] LABS: Band 8 % (5-11); Eosinophils 4 % (0-10); Hemoglobin 10.2 g/dL (12.0-16.0); Lymphocytes 12 % (21-51); MDiff Complete? YES; Mean Corpuscular HGB CONC 32.5 g/dL (32.0-36.0); Mean Corpuscular Hemoglobin 31.9 pg (27.0-31.0); Mean Corpuscular Volume 98.1 fL (78.0-98.0); Mean Platelet Volume 9.7 fL (7.4-10.4); Monocytes 10 % (0-10); Neutrophil 66 % (42-75); Platelet Count 180 thou/uL (130-400); Platelet Morphology Comment Appears Adequate; RBC Distribution Width 12.5 % (11.5-14.5); Red Blood Cell (RBC) Count 3.19 mill/uL (4.20-5.40); White Blood Cell (WBC) Count 10.8 thou/uL (4.8-10.8)
[2019-03-26] MEDS ORDERED: Ibuprofen 600 MG TAB PO PRN (08:23)
[2019-03-26] MEDS: Senokot S 8.6-50 MG TAB PO SCH ×2 (09:27→19:56)
[2019-03-26] MEDS: Polyethylene Glycol 3350 17 GM Packet PO SCH (09:27)
[2019-03-26] MEDS: Gabapentin 300 MG CAP PO SCH ×2 (09:27→20:19)
[2019-03-26] MEDS: Lisinopril 10 MG TAB PO SCH (09:27)
--- NOTE | 2019-03-26 15:35 | PRG ---
DATE OF SERVICE: 03/26/2019 SUBJECTIVE: The patient remains on the surgical floor. She is status post a ground level fall when she sustained an L3 burst fracture. She also is currently being treated for aspiration pneumonia. The patient continues to have some difficulty with liquids. She has been evaluated by Speech Therapy and they have made recommendations, which has improved this. The patient has had decreased oxygen requirement, and states that she is feeling more comfortable. The patient still does have a weak cough. This is somewhat compounded by her TLSO brace that she is required to wear full-time. The patient has been afebrile. Otherwise, her pain is controlled and she is working with therapy. OBJECTIVE: VITAL SIGNS: Temperature is 97.7, heart rate is 91, blood pressure is 120/62, oxygen saturation is 95% on 3 L via nasal cannula. GENERAL: The patient is resting comfortably in bed. She was talking on the phone without difficulty when I entered. She is conversant, speaks in full sentences, though her cough continues to sound wet. HEENT: Unremarkable. LUNGS: Scant upper airway rhonchi that does improve with cough. HEART: Regular rate and rhythm. ABDOMEN: Soft and nontender with active bowel sounds. EXTREMITIES: Her TLSO brace does appear to be fitting properly. Extremities are neurovascularly intact. LABORATORY FINDINGS: White blood cell count 10.8, hemoglobin 10.2, hematocrit 31.2, platelets 180. Sodium 132, potassium 4.6, chloride 99, CO2 of 28, BUN 28, creatinine 0.90, glucose 95, magnesium 2.2, and phosphorus 2.6. BNP is 80.9. IMAGING STUDIES: There are no radiographs reviewed this morning. ASSESSMENT AND PLAN: 1. Status post ground level fall. 2. L3 burst fracture, treated in full-time TLSO brace. 3. Scalp laceration, status post repair. 4. Aspiration pneumonia, under treatment, improving. 5. Acute kidney injury, resolved. 6. Suspected aspiration continued, diet adjustment per Speech Therapy. 7. History of hypertension, coronary artery disease, and cardiac stents. Plan will be to continue supportive care, breathing treatments, antibiotics, and await placement decision. We will discontinue her scalp sonali also. Job ID: [id number]
[2019-03-26] MEDS: guaiFENesin/Codeine Phosphate 200 mg/20 mg 10 ml UD Cup PO PRN (17:02)
[2019-03-26] MEDS ORDERED: Furosemide 20 MG/2 ML VIAL SLOW IVP SCH (18:00)
[2019-03-26] MEDS: Cyclobenzaprine 10 MG TAB PO PRN (20:19)
[2019-03-27] MEDS: guaiFENesin/Codeine Phosphate 200 mg/20 mg 10 ml UD Cup PO PRN ×4 (00:36→20:54)
--- NOTE | 2019-03-27 02:05 | PRG ---
DATE OF SERVICE: 03/27/2019 SUBJECTIVE: The patient was seen this evening, lying in bed, no signs of acute distress. She was easily aroused and reported she had no issues and was trying to get back to sleep. OBJECTIVE: VITAL SIGNS: Temperature 98.1, pulse 101, respirations 18, oxygen saturation 94% on 2 L nasal cannula, blood pressure 127/77. GENERAL: Well-appearing elderly female, lying in bed with no signs of acute distress. PULMONARY: Equal chest rise and fall. No signs of acute respiratory distress. ASSESSMENT: 1. Status post mechanical fall from standing. 2. L3 burst fracture, nonoperative, treated with TLSO brace. 3. Scalp laceration, status post repair. 4. Aspiration pneumonia, improving. 5. Acute kidney injury, resolved. 6. Suspicion for aspiration, treatment by Speech Language pathology. 7. History of hypertension, coronary artery disease, and cardiac stents. PLAN: Continue current diet and pain regimen. Continue physical and occupational therapy. She is pending placement at a facility at this time. She is ready for discharge at this time. Job ID: [id number]
[2019-03-27] MEDS: Acetaminophen 325 MG TAB PO SCH ×4 (02:39→20:50)
[2019-03-27] MEDS: traMADol HCl 50 MG TAB PO PRN (03:43)
[2019-03-27 05:29] LABS: Anion Gap 14 mmol/L (10-20); BUN (Urea Nitrogen) 29 mg/dL (9.8-20.1); Calc. Creatinine Clearance 74 mL/min (70-130); Calcium 9.6 mg/dL (7.8-10.44); Carbon Dioxide 22 mmol/L (23-31); Chloride 102 mmol/L (98-107); Estimated GFR-MDRD 56; Glucose 98 mg/dL (83-110); Phosphorus 2.6 mg/dL (2.3-4.7); Potassium 4.7 mmol/L (3.5-5.1); Sodium 133 mmol/L (136-145)
[2019-03-27] MEDS: Furosemide 20 MG/2 ML VIAL SLOW IVP SCH (08:58)
[2019-03-27] MEDS: Gabapentin 300 MG CAP PO SCH ×2 (08:58→20:50)
[2019-03-27] MEDS: Senokot S 8.6-50 MG TAB PO SCH ×2 (08:59→20:50)
[2019-03-27] MEDS: Lisinopril 10 MG TAB PO SCH (08:59)
[2019-03-27] MEDS: Polyethylene Glycol 3350 17 GM Packet PO SCH (09:03)
--- NOTE | 2019-03-27 14:20 | PRG ---
DATE OF SERVICE: 03/27/2019 SUBJECTIVE: The patient remains on the surgical floor. She is status post ground level fall, in which she sustained a L3 burst fracture. She is being treated in full-time TLSO wear. She is also currently undergoing treatment for aspiration pneumonia. Yesterday, the patient required NT suction twice, this seems to relieve a lot of her cough and respiratory issues. This morning, she is looking much more comfortable and she is having breakfast. We have asked Speech Therapy continue to see her and if needed, do a modified barium swallow to evaluate her swallow. OBJECTIVE: VITAL SIGNS: Temperature is 98.3, heart rate 100, blood pressure 128/76, respirations 16, and oxygen saturation 93% on 2 L via nasal cannula. GENERAL: The patient is resting comfortably in bed. She is having her breakfast, which has been modified by Speech Therapy. She appears to be doing well. LUNGS: Continue to have scant rhonchi in the upper lobes, but overall she appears improved compared to yesterday. Respiratory Therapy, who was also at bedside while I was there, agreed with me. HEENT: Unremarkable. HEART: Regular rate and rhythm. ABDOMEN: Soft with active bowel sounds. EXTREMITIES: Neurovascularly intact x4. LABORATORY FINDINGS: Sodium 133, potassium 4.7, chloride 102, CO2 of 22, BUN 29, creatinine 0.95, glucose 98, magnesium 2.0, phosphorus 2.6. There are no radiographs reviewed this morning. ASSESSMENT AND PLAN: 1. Status post ground level fall. 2. L3 burst fracture, treated in full-time TLSO brace. 3. Scalp laceration, sonali discontinued yesterday. 4. Aspiration pneumonia, continue treatment. 5. Acute kidney injury, resolved. 6. Suspected continued aspiration, continue speech therapy. 7. History of hypertension, coronary artery disease, and cardiac stent. Plan will to be to continue physical and occupational therapy, speech therapy, and await placement decision. Job ID: [id number]
[2019-03-27] MEDS: Cyclobenzaprine 10 MG TAB PO PRN (20:50)
--- NOTE | 2019-03-28 02:41 | PRG ---
DATE OF SERVICE: 03/28/2019 SUBJECTIVE: The patient was seen this evening, lying in bed and asleep with no signs of acute distress. She did have an occasional cough. Nursing reported no acute events. OBJECTIVE: VITAL SIGNS: Temperature 98.1, pulse 102, respirations 16, oxygen saturation 93% on 2 L nasal cannula, and blood pressure 132/73. GENERAL: Elderly female, sitting up in bed with no signs of acute distress. PULMONARY: Equal chest rise and fall. No signs of acute respiratory distress. Occasional wet cough. Nursing reports productive cough. ASSESSMENT: 1. Status post ground level fall. 2. L3 burst fracture, nonoperative. 3. Scalp laceration, status post repair, sonali discontinued yesterday. 4. Aspiration pneumonia, stable. 5. Acute kidney injury, resolved. 6. Suspected continued aspiration, continue speech therapy. 7. History of hypertension, coronary artery disease, and cardiac stents. PLAN: Continue physical and occupational therapy as well as speech-language pathology. She is awaiting placement at this time. She is ready for discharge. Job ID: [id number]
[2019-03-28] MEDS: Acetaminophen 325 MG TAB PO SCH ×3 (03:38→15:15)
[2019-03-28] MEDS: guaiFENesin/Codeine Phosphate 200 mg/20 mg 10 ml UD Cup PO PRN ×2 (03:39→09:22)
[2019-03-28] MEDS: Gabapentin 300 MG CAP PO SCH (08:13)
[2019-03-28] MEDS: Lisinopril 10 MG TAB PO SCH (08:14)
[2019-03-28] MEDS: Senokot S 8.6-50 MG TAB PO SCH (08:14)
[2019-03-28] MEDS: Furosemide 20 MG/2 ML VIAL SLOW IVP SCH (08:14)
[2019-03-28] MEDS: Polyethylene Glycol 3350 17 GM Packet PO SCH (08:14)
[2019-03-28] MEDS ORDERED: Acetylcysteine 20% 200 MG/ML 30 ML VIAL INH SCH (13:00)
[2019-03-28 15:59] VITALS: BP 113/56; TEMP 98.5
--- NOTE | 2019-03-29 02:11 | DIS ---
DATE OF ADMISSION: 03/21/2019 DATE OF DISCHARGE: 03/28/2019 This is Raquel Deluca NP dictating a report for Dr. Hinton. ADMITTING ATTENDING: Fam Beauchamp MD DISCHARGE ATTENDING: Dr. Hinton. CONSULTS: 1. Neurosurgery, Joe Deluna MD. 2. Cardiovascular Surgery, Eloy Hudson MD. PROCEDURES PERFORMED: 1. On 03/21/2019, brain CT; impression, no acute intracranial abnormality. 2. CT cervical spine shows no fracture. Severe multilevel degenerative changes. Lumbar spine CT shows and displaced oblique oriented fracture involving L3 vertebral body and retroperitoneal hematoma. 3. Chest x-ray on 03/24/2019; impression, evidence of patchy right lower lung infiltrates. 4. On 03/25/2019, Dr. Hudson attempted to place an inferior vena cava filter. The catheter size required was not available and the case was stopped. PRIMARY DIAGNOSES: Status post ground level fall, L3 fracture with associated large retroperitoneal hematoma, skull laceration, closed with sonali, which was removed yesterday. Aspiration pneumonia, acute kidney injury resolved. SECONDARY DIAGNOSES: History of hypertension, coronary artery disease, cardiac stent placement. DISCHARGE MEDICATIONS: 1. Acetaminophen 650 mg p.o. q.6 hours. 2. Mucomyst nebs q.6 hours. 3. Tums 1000 mg p.o. 3 times a day as needed. 4. Flexeril 10 mg p.r.n. 5. Gabapentin 300 mg p.o. b.i.d. 6. Robitussin AC as needed. 7. DuoNeb as needed and q.6 hours. 8. Levaquin 750 mg p.o. for two more days. 9. Lisinopril 10 mg p.o. daily. 10. MiraLAX as needed. 11. Senokot as needed. DISCONTINUED MEDICATIONS: None. HISTORY OF PRESENT ILLNESS AND HOSPITAL COURSE: This is an 83-year-old female, who presented to the emergency room after a ground level fall. The patient reported she fell from standing, hitting her head and right arm on a motorized scooter. The patient denies any loss of consciousness. The patient reported right temporal area pain and back pain after falling. The patient had a GCS of 15 when she arrived to the emergency room. The patient's pain was aggravated with movement and had no change in sensation to extremities. The patient was evaluated by Neurosurgery and a TLSO brace was recommended for three weeks. The patient did have some swallowing issues while she was in the hospital and Speech Therapy was consulted. The patient developed an aspiration pneumonia while in the hospital and was placed on antibiotics. The patient did have some pain control issues, limiting her participation with physical therapy. The patient's pain regimen was adjusted and patient was encouraged to ambulate and be out of the bed more during the day. The patient was also encouraged aggressive pulmonary toilet. On the day of discharge, the patient was examined by Dr. Hinton. The patient was deemed stable for discharge to [facility]. The patient's exam was unremarkable including cardiopulmonary and GI exam. The patient was deemed stable for discharge for continued physical and occupational therapy and also continued aggressive pulmonary toilet. DISPOSITION: Stable. DISCHARGE INSTRUCTIONS: 1. Location: [facility]. 2. Diet: Regular diet with modifications soft mechanical and thin liquids per Speech Therapy. 3. Orthopedic limitations: Weightbearing as tolerated, the patient is to wear LSO brace at all times for three weeks until followup with Neurosurgery. 4. Followup: Follow up with Neurosurgery in three weeks. No aspirin products for at least three weeks. No need to follow up with Trauma Services. Call for any questions. Job ID: [id number]
== END 2019-03-28 18:19 | DRG 551 ==
LOC: ERS 18:24 → ERHOLD 20:00 → IMCU/EMU 23:43 → SURG A 03-22 23:50
PROVIDERS: ADMIT Surgery; ATTEND Surgery
PROC: 0HQ0XZZ Repair Scalp Skin, External Approach (ICD-10-PCS; principal; 2019-03-21)
PROC: 3E02340 Introduction of Influenza Vaccine into Muscle, Percutaneous Approach (ICD-10-PCS; 2019-03-22)
PROC: B519ZZZ Fluoroscopy of Inferior Vena Cava (ICD-10-PCS; 2019-03-25)
DX: S32.039A Unspecified fracture of third lumbar vertebra, initial encounter for closed fracture (principal); J69.0 Pneumonitis due to inhalation of food and vomit; S36.892A Contusion of other intra-abdominal organs, initial encounter; N17.9 Acute kidney failure, unspecified; Z23 Encounter for immunization; I10 Essential (primary) hypertension; I25.10 Atherosclerotic heart disease of native coronary artery without angina pectoris; S01.01XA Laceration without foreign body of scalp, initial encounter; Z96.653 Presence of artificial knee joint, bilateral; W01.198A Fall on same level from slipping, tripping and stumbling with subsequent striking against other object, initial encounter; Z95.5 Presence of coronary angioplasty implant and graft; Z88.0 Allergy status to penicillin
CPT/HCPCS: 12002; 36415; 36416; 37191; 70450; 71045; 72125; 72131; 80048; 80053; 83735; 83880; 84100; 85007; 85025; 85027; 85610; 85730; 87070; 87205; 90471; 90662; 90715; 94640; 94667; 96374; 96375; 99292; C1769; C9113; G0008; G0390; J0696; J1644; J1940; J1956; J2001; J2270; J2405; J3475; J3490; J7608; J7620; L0639; Q9967

== ENCOUNTER 2019-04-21 12:48 | Outpatient (CLI) | payer MEDICARE, OTHER ==
--- NOTE | 2019-04-21 13:22 | RAD ---
Lumbar spine 2 views: 04/21/2019 HISTORY: Fall, back pain FINDINGS: Prior CT examination demonstrated a fracture of the L3 vertebral body, which is very diffic ult to appreciate on this exam. There is mild loss of vertebral body height on the right involving L3, likely on the basis of this fracture, only appreciated on the frontal view. There is bulky osteop hyte formation bilaterally at multiple levels, most prominent on the left at L1-2 and on the right at L4-5. There is prominent multilevel facet hypertrophy. There is multilevel disc space narrowing wi th prominent bulky anterior osteophyte formation at L1-2, L2-3, and L3-4. There is mild anterolisthesis of L4 on L5 measuring 7 mm. IMPRESSION: 2 view lumbar spine as detailed above. Patient has a known L3 vertebral body fracture whi ch is difficult to visualize on this examination but there is loss of vertebral body height laterally on the right at L3 on the frontal view.
== END 2019-04-21 12:49 | disposition home or self-care (01) ==
LOC: TBSIIMAG 12:48
PROVIDERS: ATTEND Neurological Surgery
DX: S32.030A Wedge compression fracture of third lumbar vertebra, initial encounter for closed fracture (principal)
CPT/HCPCS: 72100

== ENCOUNTER 2019-06-16 15:12 | Outpatient (CLI) | payer MEDICARE, OTHER ==
--- NOTE | 2019-06-16 15:37 | RAD ---
TWO VIEWS LUMBAR SPINE: HISTORY: Fell in March 2019. Pain. Known L3 fracture. COMPARISON: 1 05/19/2019, 04/21/2019. FINDINGS: Redemonstration of 5 lumbar-type vertebrae. Extensive but essentially stable degenerative change with loss of disc space height. No osteophyte formation. There are hypertrophic changes in the posterior elements at L2-L3, L3-L4, L4-L5 and L5-S1. There is a 0.9 cm of anterolisthesis of L4 upon L5. There appears to be near complete fusion of the L5-S1 disc space. Degenerative changes of the distal thoracic spine are noted. 2.9 mm of anterolisthesis of L3 upon L4. 2.0 mm retrolisthesis of L2 upon L3. IMPRESSION: 1. No fracture. 2. Extensive degenerative changes of the lumbar spine as detailed above. Known L3 fracture is difficu lt to appreciate on the current radiograph. Transcribed Date/Time: 06/16/2019 3:51 PM
== END 2019-06-16 15:13 | disposition home or self-care (01) ==
LOC: TBSIIMAG 15:12
PROVIDERS: ATTEND Neurological Surgery
DX: S32.039D Unspecified fracture of third lumbar vertebra, subsequent encounter for fracture with routine healing (principal); M47.816 Spondylosis without myelopathy or radiculopathy, lumbar region
CPT/HCPCS: 72100

== ENCOUNTER 2019-10-03 20:18 | Inpatient (IN) | payer MEDICARE, BC, OTHER ==
[2019-10-03 21:24] LABS: #Lymphocytes 1.5 thou/uL (1.20-3.40); #Monocytes 0.9 thou/uL (0.11-0.59); #Neutrophils 12.4 thou/uL (1.40-6.50); %Basophils 0.1 % (0.0-1.0); %Eosinophils 0.1 % (0.0-10.0); %Lymphocytes 10.2 % (21.0-51.0); %Monocytes 6.1 % (0.0-10.0); %Neutrophils 83.4 % (42.0-75.0); Hemoglobin 14.3 g/dL (12.0-16.0); Mean Corpuscular HGB CONC 31.9 g/dL (32.0-36.0); Mean Corpuscular Hemoglobin 30.6 pg (27.0-31.0); Mean Platelet Volume 9.3 fL (7.4-10.4); Platelet Count 203 thou/uL (130-400); RBC Distribution Width 13.7 % (11.5-14.5); Red Blood Cell (RBC) Count 4.68 mill/uL (4.20-5.40); White Blood Cell (WBC) Count 14.9 thou/uL (4.8-10.8)
[2019-10-03 21:28] LABS: Bacteria/HPF 4+ HPF (None Seen); Bilirubin Negative (Negative); Blood, Urine 1+ (Negative); Clarity Turbid (Clear); Glucose, Urine (Dipstick) Normal (Negative); Leukocyte 500 Leu/uL (Negative); Nitrite 2+ (Negative); Protein, Urine (Dipstick) 50 mg/dL (Neg-Trace); RBC/HPF None Seen HPF (0-3); Squamous Epithelial 0-3 HPF (0-3); Urobilinogen Normal mg/dL (Less than 2); WBC/HPF Greater than 50 HPF (0-3)
[2019-10-03 21:52] LABS: ALT (SGPT) 28 U/L (8-55); AST (SGOT) 41 U/L (5-34); Albumin 3.8 g/dL (3.4-4.8); Alkaline Phosphatase 97 U/L (40-110); Anion Gap 17 mmol/L (10-20); BUN (Urea Nitrogen) 28 mg/dL (9.8-20.1); Bilirubin, Total 0.7 mg/dL (0.2-1.2); CK (CPK) 2468 U/L (29-168); Calc. Creatinine Clearance 0 mL/min (70-130); Calcium 10.1 mg/dL (7.8-10.44); Carbon Dioxide 26 mmol/L (23-31); Chloride 104 mmol/L (98-107); Estimated GFR-MDRD 56; Globulin 3.6 g/dL (2.4-3.5); Glucose 120 mg/dL (83-110); Protein, Total 7.4 g/dL (6.0-8.3); Sodium 143 mmol/L (136-145)
--- NOTE | 2019-10-03 22:13 | RAD ---
RIGHT FOOT 3 VIEWS: Date: 10/03/2019 HISTORY: Injury. COMPARISON: None. FINDINGS: There are high grade degenerative changes of the midfoot. Nondisplaced fracture of the second metatar lion base. Possibly fractures of third and fourth metatarsal base although not well seen. Toes are intact. IMPRESSION: 1. Nondisplaced second metatarsal base fracture. 2. Advanced midfoot degenerative change. 3. Poor evaluation of the Lisfranc interval. 4. No acute fracture of the toes. POS: HOME
--- NOTE | 2019-10-03 22:15 | RAD ---
RIGHT ANKLE 3 VIEWS: Date: 10/03/2019 HISTORY: Injury. COMPARISON: None. FINDINGS: There is mild medial and lateral ankle mortise narrowing. No acute displaced fracture or malalignment . IMPRESSION: Intact ankle. POS: HOME
--- NOTE | 2019-10-03 22:16 | RAD ---
RADIOGRAPH RIGHT LEG TIBIA AND FIBULA 2 VIEWS: Date: 10/03/2019 HISTORY: 84-year-old female with right leg acute traumatic injury. FINDINGS: Hardware at knee. No signs of acute fracture of the tibia or fibula. No signs of hardware loosening a t the tibial plateau. IMPRESSION: 1. No fracture. 2. Status post total right knee replacement arthroplasty. POS: JIN
--- NOTE | 2019-10-03 22:37 | CT ---
CT RIGHT FOOT WITHOUT CONTRAST: Date: 10/03/2019 HISTORY: Pain, injury. COMPARISON: Foot radiograph same date. FINDINGS: Large osteophytes of the posterior flexion zone of the femoral condyles. Knee arthroplasty appears to be intact. There is circumferential soft tissue swelling extending from the mid tibia and fibula to the ankle an d foot. High grade midfoot degenerative change. Old osteochondral defect medial talar dome. Mild hindfoot degenerative changes. The nondisplaced second metatarsal base fracture is not well defined on the CT exam and is easier see n on the radiograph. Moderate interphalangeal joint space disease and osteophyte formation of the toes. There is a nondisplaced fracture of the anterior superior margin of the tibial plafond at the AITFL. There is some ossification of the deltoid ligament from prior injury. There is chronic tendinosis and calcifications within the Achilles tendon. No significant subluxation of the peroneal tendons. Flexor tendons are intact. There appears to be a blister on the posterior calcaneal fat pad. IMPRESSION: 1. Nondisplaced fracture through the anterolateral tibial plafond at the AITFL insertion suggesting a syndesmotic avulsive injury. 2. The second metatarsal base fracture is not well defined on CT due to overlying degenerative nguyễn e as well as demineralization. 3. Extensive soft tissue swelling along the ankle. 4. High grade midfoot degenerative changes. 5. Old osteochondral defect medial talar dome. POS: HOME
[2019-10-03] MEDS ORDERED: Ondansetron PF 4 MG/2 ML Vial IVP PRN (23:09)
[2019-10-03] MEDS ORDERED: Ondansetron ODT 4 MG TAB PO PRN (23:09)
[2019-10-03] MEDS ORDERED: Dextrose 50% Abboject 50 ML SYRINGE SLOW IVP PRN (23:09)
[2019-10-03] MEDS ORDERED: Dextrose 5% in Water 1,000 ML IV PRN (23:09)
[2019-10-03] MEDS ORDERED: Sodium Bicarbonate 150 MEQ in Dextrose 5% in Water 1,000 ML IV SCH (23:59)
[2019-10-04] MEDS ORDERED: Cyclobenzaprine 10 MG TAB PO PRN (00:01)
[2019-10-04] MEDS ORDERED: traMADol HCl 50 MG TAB PO PRN ×2 (00:01)
[2019-10-04 00:27] VITALS: BMI 42.0
[2019-10-04] MEDS: Acetaminophen 325 MG TAB PO SCH ×6 (00:50→20:20)
[2019-10-04] MEDS: Cipro 250 MG TAB PO SCH ×2 (05:32→20:20)
--- NOTE | 2019-10-04 05:38 | HP ---
REQUESTING PHYSICIAN: Dr. Martinez. CONSULTATIONS: Orthopedics, Dr. Chang. HISTORY OF PRESENT ILLNESS: The patient is an 84-year-old woman, who was on her farm tractor, when she got off it and it moved forward trapping her right foot under it this morning. She was there for approximately 8 hours when she was able to finally get someone to notice her and help her get relieved from the tractor. She was brought to the emergency department, where she underwent evaluation and examination and was noted to have metatarsal fracture, but also had a CK elevated to 2468. At which time, we were asked to evaluate the patient for admission and obtain orthopedic consultation. The patient denied any loss of consciousness. She states that her only pain is in her right foot and ankle. ALLERGIES: PENICILLIN. CURRENT MEDICATIONS: 1. Lisinopril. 2. Baby aspirin. 3. Multivitamin. 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 PAST SURGICAL HISTORY: Cardiac stent placement, bilateral total knee replacements, and cholecystectomy. SOCIAL HISTORY: The patient lives individually at home alone. She denies drug, tobacco, or alcohol use. REVIEW OF SYSTEMS: 10-point review of systems is negative unless otherwise stated. PHYSICAL EXAMINATION: VITAL SIGNS: Blood pressure 156/77, heart rate 93, respirations 18, oxygen saturation is 97% on room air, and temperature is 98.1. GENERAL: The patient is resting comfortably in bed. She is awake, alert, and conversant. Norma Coma Scale is 15. Currently, she complains of her right foot and ankle and also some right-sided body pain and aches. HEENT: Head is normocephalic. Eyes are PERRLA bilaterally. Ears are atraumatic without discharge. Nose is atraumatic without discharge. Oropharynx is clear. NECK: Nontender. Trachea is midline. No JVD. CHEST: Clear to auscultation with good inspiratory and expiratory effort. HEART: Regular rate and rhythm. ABDOMEN: Soft, flat, and nontender with active bowel sounds. EXTREMITIES: Neurovascularly intact x4. Right lower extremity shows contusions and superficial abrasions to the dorsum of her foot and her heel area. There are no signs of compartment syndrome. BACK: Atraumatic and nontender. LABORATORY FINDINGS: White blood cell count 14.9, hemoglobin 14.3, hematocrit 44.9, platelets 203. Sodium 143, potassium 4.0, chloride 104, CO2 of 26, BUN 28, creatinine 0.96, and glucose 120. LFTs are unremarkable. CK 2468. Urinalysis shows positive protein, positive nitrite, positive leukocyte esterase, greater than 50 wbc's, and 4+ bacteria. RADIOGRAPHS: Views of the right tibia and fibula show no fracture. Views of the right ankle show an intact ankle. Views of the right foot show a nondisplaced second metatarsal base fracture, multiple chronic changes. CT of the right lower extremity shows a nondisplaced fracture through the anterolateral tibial plafond at the AITFL insertion suggesting a syndesmotic avulsion injury. It also shows a second base metatarsal fracture and multiple degenerative chronic changes. ASSESSMENT: 1. Status post crush injury to right foot. 2. Second metatarsal base fracture of the right foot. 3. Probable syndesmotic injury of the right lower extremity. 4. Acute rhabdomyolysis. 5. History of hypertension. PLAN: Plan will be to admit the patient to the surgical floor. We will do IV hydration overnight. We will initially start with sodium bicarbonate in light of her already 2400 CK. Do pain control, pulmonary toilet, gastritis, mechanical VTE prophylaxis, and repeat her labs in the morning. Per brief discussion with Dr. Chang, this will likely be treated nonoperatively with a walking boot. The evaluation, examination, laboratory, and radiographic findings will be discussed with Dr. Schneider after this dictation. Job ID: [id number]
[2019-10-04 06:33] LABS: Anion Gap 13 mmol/L (10-20); BUN (Urea Nitrogen) 24 mg/dL (9.8-20.1); Calc. Creatinine Clearance 86 mL/min (70-130); Carbon Dioxide 29 mmol/L (23-31); Chloride 101 mmol/L (98-107); Estimated GFR-MDRD 67; Glucose 118 mg/dL (83-110); Magnesium 1.6 mg/dL (1.6-2.6); Phosphorus 2.2 mg/dL (2.3-4.7); Potassium 3.3 mmol/L (3.5-5.1); Sodium 140 mmol/L (136-145)
[2019-10-04 06:45] LABS: CK (CPK) 5427 U/L (29-168)
[2019-10-04] MEDS ORDERED: Potassium Phosphate 30 MMOL in Sodium Chloride 0.9% 250 ML 250 ML IVPB SCH (07:00)
[2019-10-04] MEDS ORDERED: Potassium Phosphate 30 MMOL, Magnesium Sulfate 3 GM in Sodium Chloride 0.9% 250 ML 250 ML IVPB SCH (07:15)
[2019-10-04] MEDS ORDERED: Lisinopril 10 MG TAB PO SCH ×2 (09:00)
[2019-10-04] MEDS ORDERED: Famotidine 20 MG TAB PO SCH (09:00)
--- NOTE | 2019-10-04 12:19 | CON ---
DATE OF CONSULTATION: We were asked by Trauma to see the patient. She is a very pleasant 84-year-old who was trying to get on her tractor and what happened is, it moved a little bit and she got her right foot caught under the wheel. Unfortunately, she spent about 8 hours stuck in this position until help arrived. She has really no complaint currently of right foot pain with her injuries, but is quite swollen with abrasions and numb to the touch. She is moving it okay and I can feel a dorsalis pedis pulse fairly well, posterior tibialis due to swelling I was unable to palpate. There was no other injuries at the time and the patient is in good spirits this morning. PAST MEDICAL HISTORY: Hypertension, CAD with stent placement and some vision loss in the right eye. PAST SURGICAL HISTORY: Stent placement, cardiac; bilateral total knees; and cholecystectomy. SOCIAL HISTORY: Lives at home alone. Her son lives next door. No alcohol, nicotine, or illicit drug use. CURRENT MEDICATIONS: 1. Lisinopril. 2. Baby aspirin. 3. Multivitamin. ALLERGIES: PENICILLIN. FAMILY HISTORY: For this visit is noncontributory. REVIEW OF SYSTEMS: Other than she had some pain in that right foot with standing this morning, trying to use the restroom, the foot is numb this morning and quite edematous. Rest of review of systems is negative. PHYSICAL EXAMINATION: GENERAL: Well-nourished, well-developed female, resting in bed in room 3337, in good spirits. Speech clear. Affect pleasant. Answers questions appropriately. She is oriented. HEENT: Other than the right vision deficit, face is symmetric, tongue is midline. NECK: Supple. Trachea midline. EXTREMITIES: Upper extremities; equal size, shape, symmetry. Normal bulk and tone. RESPIRATIONS: 16 and regular. PELVIS: No pain with rocking. She does have a little edema noted to the right knee, which is a little bit sore due to her position she was in. Right foot quite swollen with multiple areas of ecchymosis, edema. She has some skin breakdown due to swelling. Left lower extremity normal exam. Again in the right lower extremity, I was able to palpate a dorsalis pedal pulse and posterior tibialis due to the edema, I was not able to feel. ASSESSMENT: Metatarsal fractures secondary to tractor injury. PLAN: Trauma is following for her medical issues and her rhabdomyolysis. As for her crush injury to the foot, I am going to have wound care just to evaluate her for any dressing need she might have. A boot has been ordered for her. She can weight bear as tolerated, but I told her this may be painful for the first couple of days. If she is struggling with PT and mobility, she may need to go to skilled or rehab for few days to get some pain control and stability with her gait. She understands the plan. She is happy with it. I would also like her to follow up in 2 weeks with re-x-rays and she understands the plan. At this time, she does not need surgery and again she will be re-evaluated in 2 weeks to see if there is any movement of those metatarsals or any splaying of the bones. Job ID: [id number]
--- NOTE | 2019-10-04 15:11 | PRG ---
DATE OF SERVICE: 10/04/2019 SUBJECTIVE: Ms. 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 The patient is awake and alert. She reports numbness of the foot. Otherwise, her pain control is adequate. OBJECTIVE: VITAL SIGNS: This morning include blood pressure 107/62, pulse 87, respiratory rate is 16, temperature 98.7 degrees Fahrenheit, oxygen saturation 92% on room air. HEART: Reveals regular rate and rhythm. LUNGS: Clear to auscultation bilaterally. Breathing, regular and nonlabored. ABDOMEN: Soft, nontender, nondistended. EXTREMITIES: Reveal 2+ bilateral radial and left pedal pulses present. Although, the dorsalis pedis and posterior tibial pulses are nonpalpable. The right foot is warm to touch. Additionally, the right foot is quite swollen with several blisters in the dorsum, lateral as well as a plantar surface. Capillary refill is less than 2 seconds. Although, the patient is unable to sense touch to the right foot. She, however, feels pressure. LABORATORY FINDINGS: Include metabolic profile; sodium 140, potassium 3.3, chloride is 101, bicarb is 29, BUN 24, creatinine 0.82, glucose 118, phosphorus is 2.2, magnesium is 1.6. Creatine kinase is markedly elevated at 5427. This is up from a bit yesterday 2468. IMPRESSION: 1. Status post crush injury to right foot. 2. Nondisplaced second metatarsal fracture. 3. Acute traumatic rhabdomyolysis. 4. Acute hypokalemia. 5. Acute hypomagnesemia. 6. Acute hypophosphatemia. PLAN: 1. Correct abnormal electrolytes. 2. Continue with fluid resuscitation, maintaining adequate urinary output. Anticipate resolution of the rhabdomyolysis. 3. Continue to monitor the right foot for evidence of compartment syndrome. 4. We will initiate prophylaxis against VTE. 5. Above findings and plan discussed with the patient who indicates understanding of information given. I have answered her questions. Job ID: [id number]
[2019-10-04] MEDS: Lactated Ringer's 1,000 ML IV SCH (17:14)
[2019-10-04] MEDS ORDERED: Lactated Ringer's 1,000 ML IV SCH (17:15)
[2019-10-04] MEDS: Enoxaparin Sodium 40 MG/0.4 ML SYRINGE SC SCH (20:20)
[2019-10-05] MEDS: Acetaminophen 325 MG TAB PO SCH ×6 (00:16→20:26)
[2019-10-05] MEDS: Lactated Ringer's 1,000 ML IV SCH ×3 (00:17→16:57)
--- NOTE | 2019-10-05 00:24 | PRG ---
DATE OF SERVICE: 10/04/2019 SUBJECTIVE: The patient was seen during evening rounds, resting comfortably in hospital bed, in no acute distress. The patient is hospital day #1 status post tractor injury with crush injury to the right foot. The patient's night nurse reports that her pain is well controlled and the patient is tolerating a regular diet. The patient's urinary output is adequate. OBJECTIVE: VITAL SIGNS: Temperature 98.9, pulse 96, respirations 16, SpO2 of 95% on room air, blood pressure 132/70. GENERAL: Elderly female, resting comfortably in bed, in no acute distress. RESPIRATORY: Breathing is regular and nonlabored. IMPRESSION: 1. Status post crush injury to right foot from tractor injury. 2. Nondisplaced second metatarsal fracture, nonoperative. 3. Acute traumatic rhabdomyolysis. 4. Acute hypokalemia. 5. Acute hypomagnesemia. 6. Acute hypophosphatemia. PLAN: Continue to monitor electrolytes. Continue fluid resuscitation and maintenance fluids. Continue to monitor urinary output. Continue with physical and occupational therapy. Job ID: [id number]
[2019-10-05 05:33] LABS: Band 3 % (5-11); Eosinophils 2 % (0-10); Hemoglobin 12.2 g/dL (12.0-16.0); Lymphocytes 24 % (21-51); MDiff Complete? YES; Mean Corpuscular HGB CONC 31.5 g/dL (32.0-36.0); Mean Corpuscular Hemoglobin 30.8 pg (27.0-31.0); Mean Corpuscular Volume 97.6 fL (78.0-98.0); Mean Platelet Volume 9.2 fL (7.4-10.4); Monocytes 1 % (0-10); Neutrophil 70 % (42-75); Platelet Count 171 thou/uL (130-400); Platelet Morphology Comment Appears Adequate; RBC Distribution Width 13.6 % (11.5-14.5); RBC Morphology Normal; Red Blood Cell (RBC) Count 3.97 mill/uL (4.20-5.40); White Blood Cell (WBC) Count 9.2 thou/uL (4.8-10.8)
[2019-10-05 05:38] LABS: Anion Gap 12 mmol/L (10-20); BUN (Urea Nitrogen) 19 mg/dL (9.8-20.1); Calc. Creatinine Clearance 80 mL/min (70-130); Calcium 9.1 mg/dL (7.8-10.44); Carbon Dioxide 29 mmol/L (23-31); Chloride 104 mmol/L (98-107); Estimated GFR-MDRD 61; Glucose 98 mg/dL (83-110); Magnesium 1.9 mg/dL (1.6-2.6); Phosphorus 2.7 mg/dL (2.3-4.7); Potassium 4.2 mmol/L (3.5-5.1); Sodium 141 mmol/L (136-145)
[2019-10-05] MEDS: Cipro 250 MG TAB PO SCH ×2 (05:38→20:26)
[2019-10-05 05:47] LABS: CK (CPK) 4617 U/L (29-168)
[2019-10-05] MEDS: Lisinopril 10 MG TAB PO SCH (08:52)
[2019-10-05] MEDS ORDERED: PHOS-NAK 1 PKT PACK PO SCH (12:45)
--- NOTE | 2019-10-05 13:02 | PRG ---
DATE OF SERVICE: 10/05/2019 SUBJECTIVE: The patient was seen this morning sitting up in chair with no signs of acute distress. She was wearing a boot on her right lower extremity, which was fitting appropriately. She reports tolerating her diet. OBJECTIVE: VITAL SIGNS: Temperature 98.1, pulse 74, respirations 16, oxygen saturation 92% on room air, blood pressure 127/75. GENERAL: Well-appearing elderly female, sitting up in bed with no signs of acute distress. PULMONARY: Equal chest rise and fall. Clear breath sounds bilaterally. No signs of acute respiratory distress. CARDIAC: Regular rate and rhythm. GI: Abdomen is soft, nontender, nondistended. EXTREMITIES: 2+ pulses in all extremities. Gross motor and sensation intact. She has a walking boot to her right lower extremity. Her foot is wrapped in Kerlix. There was swelling, but there is no signs of active bleeding or infection. LABORATORY FINDINGS: White count 9.2, hemoglobin 12.2, hematocrit 38.7, platelets 171. Sodium 141, potassium 4.2, chloride 104, bicarb 29, BUN 19, creatinine 0.88, glucose 98, phosphorus 2.7, magnesium 1.9. DIAGNOSTIC FINDINGS: There are no new diagnostic findings to report. ASSESSMENT: 1. Status post crush injury to right foot. 2. Right second metatarsal fracture, nonoperative. 3. Rhabdomyolysis, improving. 4. Urinary tract infection. 5. History of hypertension. 6. Hypophosphatemia. PLAN: Continue current diet and pain regimen. Continue physical and occupational therapy. Continue wound care to right lower extremity. Continue IV fluids of LR 125 an hour for rhabdomyolysis. Repeat blood work in the morning. Continue Cipro for a total of 5 days for UTI. Follow up urine culture. The patient would like to go home with home health. She reports her nephew is going to come and stay with her for a while to help take care of her. She will have home health for wound care as well as home PT. This patient was seen and evaluated by Dr. Hinton and myself this morning during rounds. Job ID: [id number]
[2019-10-05] MEDS: Enoxaparin Sodium 40 MG/0.4 ML SYRINGE SC SCH (20:26)
--- NOTE | 2019-10-05 23:47 | PRG ---
DATE OF SERVICE: 10/05/2019 SUBJECTIVE: The patient was seen during evening rounds on the surgical floor, sitting up in bed, in no acute distress. The patient denies any pain at this time. The patient reports that her pain has been well controlled. The patient was able to walk with Physical Therapy earlier today without any difficulties. The patient continues to tolerate a regular diet. The patient continues to have maintenance IV fluids. The patient's urinary output is adequate. OBJECTIVE: VITAL SIGNS: Blood pressure 123/72, temperature 98.1, pulse 85, respirations 14, and SpO2 of 91% on room air. GENERAL: Well-appearing elderly female, sitting up in hospital bed, in no acute distress. PULMONARY: Equal chest rise and fall, good inspiratory and expiratory effort, respirations unlabored, the patient is using her incentive spirometer. CARDIAC: Regular rate and regular rhythm. ABDOMEN: Soft, nontender, nondistended. EXTREMITIES: Moves all extremities, no focal deficits, right foot with bandage clean, dry, and intact. The patient does have some edema and redness to her right lower leg. ASSESSMENT: 1. Status post crush injury of right foot. 2. Right second metatarsal fracture, nonoperative. 3. Rhabdomyolysis, improving. 4. Urinary tract infection. 5. History of hypertension. 6. Hypophosphatemia. PLAN: Continue current diet and pain regimen. Continue physical and occupational therapy. Continue wound care for right lower extremity wound. Continue maintenance IV fluids LR 125 an hour and monitor urinary output. Repeat labs in the morning. The patient should be able to be discharged home with home health tomorrow. Plan was discussed with the patient who agrees. Job ID: [id number]
[2019-10-06] MEDS: Acetaminophen 325 MG TAB PO SCH ×5 (00:01→16:25)
[2019-10-06] MEDS: Lactated Ringer's 1,000 ML IV SCH (00:11)
[2019-10-06] MEDS: Cipro 250 MG TAB PO SCH ×2 (05:20→18:08)
[2019-10-06 05:47] LABS: Anion Gap 9 mmol/L (10-20); BUN (Urea Nitrogen) 18 mg/dL (9.8-20.1); CK (CPK) 2675 U/L (29-168); Calc. Creatinine Clearance 84 mL/min (70-130); Calcium 9.3 mg/dL (7.8-10.44); Carbon Dioxide 29 mmol/L (23-31); Chloride 105 mmol/L (98-107); Estimated GFR-MDRD 65; Glucose 92 mg/dL (83-110); Magnesium 1.8 mg/dL (1.6-2.6); Phosphorus 2.9 mg/dL (2.3-4.7); Potassium 4.2 mmol/L (3.5-5.1); Sodium 139 mmol/L (136-145)
[2019-10-06] MEDS ORDERED: PHOS-NAK 1 PKT PACK PO SCH (07:45)
[2019-10-06] MEDS: Lisinopril 10 MG TAB PO SCH (09:13)
--- NOTE | 2019-10-06 16:56 | DIS ---
DATE OF ADMISSION: 10/03/2019 DATE OF DISCHARGE: 10/06/2019 ADMISSION DIAGNOSES: Crush injury to right foot, right second metatarsal fracture, rhabdomyolysis, and urinary tract infection. DISCHARGE DIAGNOSES: Crush injury to right foot, right second metatarsal fracture, rhabdomyolysis, and urinary tract infection. CONSULTING PHYSICIAN: Dr. Chang of Orthopedic surgery. PROCEDURES: None. HOSPITAL COURSE: The patient is an 84-year-old female, who presented to the emergency department via EMS after she had a crush injury to her right foot. The patient reported she got off her tractor and it subsequently rolled onto her right foot, where she was stuck for about 8 hours before passerby came to find her. Upon evaluation, she was found to have a closed right second metatarsal fracture and rhabdomyolysis as well as urinary tract infection. She was admitted to the Trauma evaluated by Dr. Chang of Orthopedic Surgery. He recommended nonoperative management with a walking boot and wound care. The patient was started on IV hydration and her CK down trended for 2 days in a row. Urinary output was adequate. She was started on Cipro for urinary tract infection and culture was sent. At the time of discharge, the patient's pain was well controlled. She was tolerating a regular diet, ambulating with her walking boot and voiding without issues. She was discharged to home to the care of her nephew who will stay with her and she will have home health for home PT and wound care. DISCHARGE DISPOSITION: Home with home health. DISCHARGE CONDITION: Satisfactory. PHYSICAL EXAMINATION: VITAL SIGNS: Temperature 98.0, pulse 82, respirations 20, oxygen saturation 94 % on room air, and blood pressure 112/58. GENERAL: Well-appearing elderly female, sitting up in bed with no signs of acute distress. PULMONARY: Equal chest rise and fall. Clear breath sounds bilaterally. No signs of acute respiratory distress. CARDIAC: Regular rate and rhythm. GASTROINTESTINAL: Soft, nontender, nondistended. EXTREMITIES: 2+ pulses in all extremities. Gross motor and sensation intact. She has swelling to her right foot, which is about the same from yesterday. Boot is in place as well as dressing. NEUROLOGIC: GCS is 15. DISCHARGE INSTRUCTIONS: The patient was discharged to home with home health. Activity as tolerated. Weightbearing as tolerated on the right foot with her walking shoe. Regular diet. She will have home physical therapy and home wound care. She will have incentive spirometry and walker. DISCHARGE MEDICATIONS: Include; 1. Tylenol. 2. Cipro x3 more days. 3. Lisinopril. 4. Tramadol. 5. Aspirin. FOLLOWUP APPOINTMENTS: The patient is to follow up with Dr. Chang of Orthopedic Surgery in 14 days. No followup is necessary with Dr. Hinton of Trauma Surgery. This is a summary of the patient's hospitalization. For full details, please see her medical record in its entirety. Job ID: [id number] MTDD
[2019-10-06 17:18] VITALS: BP 139/78; TEMP 97.7
--- NOTE | 2019-10-13 16:50 | EKG ---
Test Reason : ER Blood Pressure : / mmHG Vent. Rate : 099 BPM Atrial Rate : 099 BPM P-R Int : 156 ms QRS Dur : 082 ms QT Int : 382 ms P-R-T Axes : 051 -12 012 degrees QTc Int : 490 ms Normal sinus rhythm Possible Left atrial enlargement Inferior infarct , age undetermined Abnormal ECG Confirmed by TRAY DE LA TORRE, CRISTIAN ([id number]), editor news MANJIT MARIE ([id number]) on 10/13/2019 4:49:37 PM Referred By: Confirmed By:CRISTIAN FELIZ MD
== END 2019-10-06 18:10 | disposition home or self-care (01) | DRG 563 ==
LOC: ERS 20:18 → OBSVTOIN 22:41 → SURG A 22:41
PROVIDERS: ADMIT Specialist; ATTEND Specialist
DX: S92.321A Displaced fracture of second metatarsal bone, right foot, initial encounter for closed fracture (principal); N39.0 Urinary tract infection, site not specified; T79.6XXA Traumatic ischemia of muscle, initial encounter; I25.10 Atherosclerotic heart disease of native coronary artery without angina pectoris; I10 Essential (primary) hypertension; H54.61 Unqualified visual loss, right eye, normal vision left eye; Z96.653 Presence of artificial knee joint, bilateral; E87.6 Hypokalemia; E83.42 Hypomagnesemia; E83.39 Other disorders of phosphorus metabolism; E86.0 Dehydration; Z90.49 Acquired absence of other specified parts of digestive tract; V84.9XXA Unspecified occupant of special agricultural vehicle injured in nontraffic accident, initial encounter; Z95.5 Presence of coronary angioplasty implant and graft; Z88.0 Allergy status to penicillin
CPT/HCPCS: 36415; 51701; 80048; 80053; 81003; 81015; 82550; 83735; 84100; 85007; 85025; 85027; 85730; 87086; 93005; 94760; 96361; 96365; A4353; J1650; J1956; J3475; J7050; J7070

== ENCOUNTER 2022-04-27 20:40 | Inpatient (IN) | payer OTHER, MEDICARE, BC ==
[2022-04-27] MEDS ORDERED: Ondansetron PF 4 MG/2 ML Vial ONE (21:12)
[2022-04-27] MEDS ORDERED: hydrALAZINE 20 MG/ML VIAL ONE (21:12)
[2022-04-27] MEDS ORDERED: Ondansetron PF 4 MG/2 ML Vial IVP PRN (21:50)
[2022-04-27] MEDS ORDERED: TETANUS, DIPHTHERIA TOX,ADULT (TDVAX) 0.5 ML VIAL IM ONE (21:50)
[2022-04-27] MEDS ORDERED: Morphine 4 MG/ML VIAL SLOW IVP PRN (21:54)
[2022-04-27] MEDS ORDERED: hydrALAZINE 20 MG/ML VIAL SLOW IVP PRN (21:57)
[2022-04-27] MEDS ORDERED: Sodium Chloride 0.9% 1,000 ML IV SCH (22:00)
[2022-04-27 23:20] VITALS: BMI 38.5
[2022-04-27] MEDS: Acetaminophen 500 MG TAB PO SCH (23:58)
[2022-04-28] MEDS: Acetaminophen 500 MG TAB PO SCH ×4 (06:05→18:22)
[2022-04-28 06:29] LABS: #Eosinphils 0.2 thou/uL (0.0-0.7); #Lymphocytes 1.8 thou/uL (1.20-3.40); #Monocytes 0.8 thou/uL (0.11-0.59); %Basophils 0.3 % (0.0-1.0); %Eosinophils 1.6 % (0.0-10.0); %Lymphocytes 18.5 % (21.0-51.0); %Neutrophils 71.6 % (42.0-75.0); Hemoglobin 12.2 g/dL (12.0-16.0); Mean Corpuscular HGB CONC 30.1 g/dL (32.0-36.0); Mean Corpuscular Hemoglobin 31.2 pg (27.0-31.0); Mean Platelet Volume 10.1 fL (7.4-10.4); Platelet Count 162 10x3/uL (130-400); RBC Distribution Width 12.7 % (11.5-14.5); Red Blood Cell (RBC) Count 3.93 mill/uL (4.20-5.40); White Blood Cell (WBC) Count 9.7 10x3/uL (4.8-10.8)
[2022-04-28 06:51] LABS: Anion Gap 11 mmol/L (10-20); BUN (Urea Nitrogen) 27 mg/dL (9.8-20.1); Calc. Creatinine Clearance 70 mL/min (70-130); Calcium 9.6 mg/dL (7.8-10.44); Carbon Dioxide 21 mmol/L (23-31); Chloride 108 mmol/L (98-107); Estimated GFR 61; Glucose 94 mg/dL (83-110); Magnesium 1.6 mg/dL (1.6-2.6); Potassium 4.6 mmol/L (3.5-5.1); Sodium 135 mmol/L (136-145)
[2022-04-28] MEDS ORDERED: Magnesium Sulfate In Water 4 GM in Premix Bag 1 BAG IVPB SCH (07:00)
[2022-04-28] MEDS: Famotidine/PF 20 mg/2ml Vial SLOW IVP SCH (10:05)
[2022-04-28] MEDS: Lisinopril 10 MG TAB PO SCH (10:05)
[2022-04-29] MEDS: Acetaminophen 500 MG TAB PO SCH ×3 (00:18→11:08)
[2022-04-29 06:15] VITALS: TEMP 98
[2022-04-29] MEDS: Lisinopril 10 MG TAB PO SCH (08:12)
[2022-04-29] MEDS: Famotidine/PF 20 mg/2ml Vial SLOW IVP SCH (08:12)
[2022-04-29 12:00] VITALS: BP 135/70
[2022-05-01] MEDS ORDERED: FLU VACC QS2022-23(65YR UP)/PF 240 MCG/0.7 ML SYRINGE IM ONE (09:00)
== END 2022-04-29 14:50 | disposition home or self-care (01) | DRG 87 ==
LOC: ERS 20:40 → SURG A 21:28
PROVIDERS: ADMIT Surgery; ATTEND Surgery
DX: S06.5X0A Traumatic subdural hemorrhage without loss of consciousness, initial encounter (principal); S06.6X0A Traumatic subarachnoid hemorrhage without loss of consciousness, initial encounter; S05.11XA Contusion of eyeball and orbital tissues, right eye, initial encounter; I25.10 Atherosclerotic heart disease of native coronary artery without angina pectoris; Z96.653 Presence of artificial knee joint, bilateral; R40.2412 Glasgow coma scale score 13-15, at arrival to emergency department; W05.0XXA Fall from non-moving wheelchair, initial encounter; Y92.59 Other trade areas as the place of occurrence of the external cause; Z88.0 Allergy status to penicillin; Z79.899 Other long term (current) drug therapy; Z79.82 Long term (current) use of aspirin; Z95.5 Presence of coronary angioplasty implant and graft; Z90.49 Acquired absence of other specified parts of digestive tract
CPT/HCPCS: 36415; 70450; 80048; 83735; 84100; 85025; 96374; 96375; G0390; J0360; J2405; J3475; J7050; S0028

== ENCOUNTER 2022-06-09 12:22 | Outpatient (CLI) | payer MEDICARE, OTHER, BC | END 2022-06-09 12:23 | disposition home or self-care (01) | LOC: BICCT 12:22 | PROVIDERS: ATTEND Physician Assistant | DX: S06.5X9A Traumatic subdural hemorrhage with loss of consciousness of unspecified duration, initial encounter (principal) | CPT/HCPCS: 70450 ==

== ENCOUNTER 2023-01-28 08:25 | Outpatient (CLI) | payer MEDICARE, OTHER | END 2023-01-28 08:26 | disposition home or self-care (01) | LOC: MRI 08:25 | PROVIDERS: ATTEND Physician Assistant | DX: M54.42 Lumbago with sciatica, left side (principal); M43.16 Spondylolisthesis, lumbar region; M48.061 Spinal stenosis, lumbar region without neurogenic claudication; M48.07 Spinal stenosis, lumbosacral region; M25.78 Osteophyte, vertebrae; M41.9 Scoliosis, unspecified | CPT/HCPCS: 72158 ==

== ENCOUNTER 2023-06-26 17:29 | Emergency (ER) | payer MEDICARE, OTHER ==
[~2023-06-26 17:29] MED LIST: Iopamidol-370 76% 500 ML MDV (1 ML CHARGE) ONE
[2023-06-26 18:27] LABS: #Eosinphils 0.3 thou/uL (0.0-0.7); #Neutrophils 4.9 thou/uL (1.40-6.50); %Basophils 0.4 % (0.0-1.0); %Eosinophils 3.8 % (0.0-10.0); %Lymphocytes 26.5 % (21.0-51.0); %Monocytes 11.4 % (0.0-10.0); %Neutrophils 57.5 % (42.0-75.0); Hematocrit 37.8 % (36.0-47.0); Hemoglobin 11.7 g/dL (12.0-16.0); Mean Corpuscular Hemoglobin 29.8 pg (27.0-31.0); Mean Corpuscular Volume 96.2 fl (78.0-98.0); Mean Platelet Volume 11.3 fL (7.4-10.4); Platelet Count 216 10x3/uL (130-400); RBC Distribution Width 15.9 % (11.5-14.5); Red Blood Cell (RBC) Count 3.93 mill/uL (4.20-5.40); White Blood Cell (WBC) Count 8.4 10x3/uL (4.8-10.8)
[2023-06-26 18:54] LABS: ALT (SGPT) 11 U/L (8-55); AST (SGOT) 14 U/L (5-34); Albumin 3.9 g/dL (3.4-4.8); Alkaline Phosphatase 90 U/L (40-110); Anion Gap 10 mmol/L (10-20); BUN (Urea Nitrogen) 40 mg/dL (9.8-20.1); Bilirubin, Total 0.6 mg/dL (0.2-1.2); Calc. Creatinine Clearance 0 mL/min (70-130); Carbon Dioxide 25 mmol/L (23-31); Chloride 109 mmol/L (98-107); Estimated GFR 51; Globulin 2.9 g/dL (2.4-3.5); Glucose 89 mg/dL (83-110); Potassium 4.9 mmol/L (3.5-5.1); Protein, Total 6.8 g/dL (5.8-8.1); Sodium 139 mmol/L (136-145)
[2023-06-26 18:58] LABS: Troponin I Less than 0.010 ng/mL (< 0.028)
== END 2023-06-26 21:51 | disposition home or self-care (01) ==
LOC: ERS 17:29
DX: M54.2 Cervicalgia (principal); I25.10 Atherosclerotic heart disease of native coronary artery without angina pectoris; I10 Essential (primary) hypertension
CPT/HCPCS: 36415; 70496; 70498; 71045; 80053; 84484; 85025